=== PATIENT | female | born 1960 | race Caucasian/White ===

== ENCOUNTER → 2017-09-28 | Outpatient (CLI) | payer OTHER ==
--- NOTE | 2017-09-28 13:05 | MG ---
HISTORY: SCREENING Comparison: Previous mammograms dated 06/20/2013 and 07/14/2010 FINDINGS: Bilateral CC and MLO projections of the right and left breast were obtained. Scattered fibroglandula r tissue is seen to be present. No significant architectural distortion, mass or clustered microcalc ifications can be observed to suggest malignancy. No skin thickening or nipple retraction is appreci ated. No pathological lymphadenopathy can be identified. Benign-appearing calcifications scattered throughout the right and left breasts are observed. IMPRESSION: NO RADIOGRAPHIC EVIDENCE OF MALIGNANCY. ACR CATEGORY: 2 - benign findings. FOLLOW-UP EXAM 1 YEAR. Diagnostic CAD was utilized and reviewed. * 0 (ZERO) - ASSESSMENT INCOMPLETE; ADDITIONAL IMAGING IS NEEDED. * 1/1 (ONE) - NEGATIVE. * 2/II (TWO) - BENIGN FINDINGS. * 3/III (THREE) - PROBABLY BENIGN FINDING; SHORT INTERVAL FOLLOW-UP SUGGESTED. * 4/IV (FOUR) - SUSPICIOUS ABNORMALITY; BIOPSY SHOULD BE CONSIDERED. * 5/V - HIGHLY SUSPICIOUS OF MALIGNANCY; BIOPSY SHOULD BE PERFORMED. A NEGATIVE X-RAY REPORT SHOULD NOT DELAY BIOPSY IF A DOMINANT OR CLINICALLY SUSPICIOUS MASS IS PRESENT; 4 TO 8 PERCENT OF CANCERS ARE NOT IDENTIFIED BY X-RAY. A NEGA TIVE REPORT MAY REINFORCE THE CLINICAL IMPRESSION. ADENOSIS AND DENSE BREASTS MAY OBSCURE AN UNDERLY ING NEOPLASM. Reported By:
== END ==
LOC: RAD 10:50
PROVIDERS: ATTEND Specialist
DX: Z12.31 Encounter for screening mammogram for malignant neoplasm of breast (principal)
CPT/HCPCS: 77067

== ENCOUNTER → 2017-10-05 | Outpatient (CLI) | payer OTHER, MEDICAID ==
--- NOTE | 2017-10-05 11:35 | CT ---
HISTORY: Abdominal pain. Study: CT abdomen and pelvis with contrast Comparison: None. Technique: Multiple axial images of the abdomen and pelvis were obtained from the lung bases to the pubic symphy sis after the administration of IV contrast. Dose reduction techniques including Automated Exposure Control (AEC) and adjustment of mA and kV were utilized. Findings: The visualized portions of the lung bases are unremarkable. The liver, spleen, pancreas, kidneys, an d adrenal glands are unremarkable in their CT appearance. The gallbladder is unremarkable in its CT a ppearance. There is thickening of the appendix to 15 mm with periappendiceal stranding. An appendico lith is within appendix. No free air to suggest perforation or focal fluid collection to suggest absc ess formation. No pathologic lymphadenopathy. Remaining large and small bowel appears normal. The ut erus and ovaries appear surgically absent. The urinary bladder is grossly unremarkable. The bony str uctures are grossly intact. IMPRESSION: Constellation of findings likely representing acute appendicitis without free air to sug gest perforation or focal fluid collection to suggest abscess formation. Reported By:
== END ==
LOC: RAD 10:22
PROVIDERS: ATTEND Internal Medicine
DX: R10.32 Left lower quadrant pain (principal); R10.12 Left upper quadrant pain; Z80.0 Family history of malignant neoplasm of digestive organs
CPT/HCPCS: 74177; A4222

== ENCOUNTER 2017-10-06 10:35 | Observation (INO) | payer OTHER, MEDICAID ==
[2017-10-06] MEDS ORDERED: NS 1000 ML 1,000 ML IV SCH (11:29)
[2017-10-06] MEDS ORDERED: DEMEROL INJ IVP PRN (11:37)
--- NOTE | 2017-10-06 11:37 | DR.H&P ---
H&P - History & Physical for Day of: H&P Date: 10/06/17 - Chief Complaint Chief Complaint: LLQ PAIN, ACUTE APPENDICITIS - History of Present Illness History of Present Illness: IS A 57 YEAR OLD PATIENT OF OURS WHO PRESENTED TO THE OFFICE WITH COMPLAINTS OF LEFT LOWER QUADRANT ABDOMINAL PAIN THAT STARTED YESTERDAY. SHE ALSO REPORTS FEVER AND NAUSEA, BUT DENIES VOMITING OR DIARRHEA. ON EXAMINATION, SHE WAS FOUND TO HAVE REBOUND TENDERNESS TO THE LEFT LOWER QUADRANT ON EXAMINATION. PATIENT WAS SENT TO THE HOSPITAL FOR A CT OF THE ABDOMEN AND PELVIS WITH CONTRAST. CT REVEALED CONSTELLATION OF FINDINGS LIKELY REPRESENTING ACUTE APPENDICITIS WITHOUT FREE AIR TO SUGGEST PERFORATION OR FOCAL FLUID COLLECTION TO SUGGEST ABSCESS FORMATION. WE PLAN TO ADMIT PATIENT TO THE HOSPITAL FOR FURTHER EVALUATION AND TREATMENT. ON ADMISSION, WE PLAN TO OBTAIN CBC, CMP, URINALYSIS, CHEST XRAY, AND EKG. WE WILL CONSULT , GENERAL SURGERY FOR APPENDECTOMY. - Review of Systems Constitutional: Fever Eyes: No Symptoms Reported. denies: See HPI, Pain, Vision Change, Conjunctivae Inflammation, Eyelid Inflammation, Redness, Other ENT: No Symptoms Reported. denies: See HPI, Ear Pain, Ear Discharge, Nose Pain , Nose Discharge, Nose Congestion, Mouth Pain, Mouth Swelling, Throat Pain, Throat Swelling, Other Respiratory: No Symptoms Reported. denies: See HPI, Cough, Dry, Shortness of Breath, Hemoptysis, SOB with Excertion, Pleuritic Pain, Sputum, Wheezing, Other Cardiovascular: No Symptoms Reported. denies: Chest Pain, See HPI, Palpitations , Orthopnea, Paroxysmal Noc. Dyspnea, Edema, Light Headedness, Other Gastrointestinal: Nausea, Abdominal Pain. denies: Vomiting, Diarrhea, Constipation, Melena, Hematochezia Genitourinary: No Symptoms Reported. denies: See HPI, Dysuria, Frequency, Incontinence, Hematuria, Retention, Other Musculoskeletal: No Symptoms Reported. denies: See HPI, Shoulder Pain, Arm Pain , Back Pain, Hand Pain, Leg Pain, Foot Pain, Neck Pain, Other Skin: No Symptoms Reported. denies: See HPI, Rash, Lesions, Jaundice, Bruising , Wound, Ecchymosis, Other Neurological: No Symptoms Reported. denies: See HPI, Weakness, Numbness, Incoordination, Change in Speech, Confusion, Seizures, Other Oriented: Normal Eyes: Normal. negative: Blurred Vision, Diplopia, Discharge, Pain, Redness, Photophobia, Other Ear: Normal. negative: Right, Left, Swelling, Ecchymosis, Hemotypanum, Abrasion , Laceration Nose: Normal. negative: Injected, Discharge, Blood, Other Throat: Normal Respiratory: Clear Throughout Cardiovascular: Normal : Normal Auscultation: Bowel Sounds: Normal Palpation: Normal Tenderness: LLQ, Moderate, Rebound, Guarding, Rigidity Skin: Normal Musculoskeletal: Normal Psychiatric: Normal Mood Description: Calm Affect: Normal Speech Pattern: Clear - Assessment/Plan (1) Acute appendicitis Qualifiers: Acute appendicitis type: unspecified acute appendicitis type Qualified Code (s): K35.80 - Unspecified acute appendicitis Status: Acute Plan: ADMIT, CONSULT GENERAL SURGERY FOR APPENDECTOMY, NORMAL SALINE @ 80ML/HR, DEMEROL 25MG IV Q4H PRN PAIN, PHENERGAN 12.5MG IV Q4H PRN PAIN, CONTINUE TO MONITOR
[2017-10-06] MEDS ORDERED: PHENERGAN INJ 25 MG IV PRN (11:38)
--- NOTE | 2017-10-06 12:02 | RAD ---
HISTORY: Preoperative exam for acute appendicitis Study: Single-view of chest Comparison: February 15, 2011 Findings: The trachea is midline. The cardiac silhouette is at the upper limits of normal. The lung apices ar e not entirely included. Otherwise the visualized lungs are clear without focal infiltrate or effusio n. Partially visualized postoperative changes of bilateral shoulder arthroplasty are noted. IMPRESSION: 1. No acute cardiopulmonary disease as noted above. Reported By:
[2017-10-06 12:05] LABS: BASOPHILS # (AUTO) 0.1 X10^3/uL (0.0-0.1); BASOPHILS % (AUTO) 0.8 % (0.2-1.0); EOSINOPHILS # (AUTO) 0.1 x10^3/uL (0.0-0.2); EOSINOPHILS % (AUTO) 1.7 % (0.9-2.9); HEMATOCRIT 43.9 % (36.0-47.0); LYMPHOCYTES # (AUTO) 2.2 X10^3/uL (1.3-2.9); LYMPHOCYTES % (AUTO) 32.5 % (21.0-51.0); MEAN CORPUSCULAR HEMOGLOBIN 33.1 pg (27.0-34.0); MEAN CORPUSCULAR HGB CONC 34.1 g/dL (33.0-35.0); MEAN CORPUSCULAR VOLUME 97.1 fL (80.0-100.0); MEAN PLATELET VOLUME 9.4 fL (7.4-11.0); MONOCYTES # (AUTO) 0.4 x10^3/uL (0.3-0.8); MONOCYTES % (AUTO) 5.3 % (0.0-13.0); NEUTROPHILS % (AUTO) 59.7 % (42.0-75.0); PLATELET COUNT 245 X10^3/uL (150.0-450.0); RED BLOOD COUNT 4.52 X10^6/uL (3.5-5.4); RED CELL DISTRIBUTION WIDTH 12.8 % (11.6-16.5); WHITE BLOOD COUNT 6.7 X10^3/uL (3.6-10.0)
[2017-10-06 12:16] LABS: ALANINE AMINOTRANSFERASE 31 Units/L (12-78); ALKALINE PHOSPHATASE 98 Units/L (46-116); ASPARTATE AMINO TRANSFERASE 22 Units/L (15-37); BLOOD UREA NITROGEN 14 mg/dL (7-18); CALCIUM 8.7 mg/dL (8.5-10.1); CARBON DIOXIDE 31.3 mmol/L (21-32); CHLORIDE 102 mmol/L (98-107); COR NA(FOR HYPERGLY) 143 mmol/L (136-145); CREATININE 0.82 mg/dL (0.55-1.02); SODIUM 142 mmol/L (136-145); TOTAL PROTEIN 7.7 g/dL (6.4-8.2); eGFR BLACK RACES > 60 (>60); eGFR NON BLACK RACES > 60 (>60)
[2017-10-06] MEDS ORDERED: KLONOPIN TAB 1 MG PO ONE (12:55)
[2017-10-06] MEDS ORDERED: ZOSYN VIAL 3.375 GM IV SCH (13:00)
[2017-10-06] MEDS ORDERED: NS 100 ML IV + SPIKE MINIBAG* 100 ML IV ONE (13:01)
[2017-10-06] MEDS ORDERED: VERSED ONE (13:16)
[2017-10-06] MEDS ORDERED: QUELICIN (OR ANECTINE) ONE (13:16)
[2017-10-06] MEDS ORDERED: NORCURON INJ 10 MG VIAL ONE (13:16)
[2017-10-06] MEDS ORDERED: NEOSTIGMINE INJ ONE (13:16)
[2017-10-06] MEDS ORDERED: ROBINUL ONE (13:16)
[2017-10-06] MEDS ORDERED: LTA KIT LIDOCAINE 4% ONE (13:16)
[2017-10-06] MEDS ORDERED: ZOFRAN INJ 4 MG VIAL ONE (13:16)
[2017-10-06] MEDS ORDERED: XYLOCAINE 2 % (PLAIN) ONE (13:16)
[2017-10-06] MEDS ORDERED: SUPRANE IN ONE (13:16)
[2017-10-06] MEDS ORDERED: LR 1000 ML IV 1,000 ML IV ONE (13:25)
[2017-10-06 14:19] VITALS: BMI 24.3
[2017-10-06 14:23] LABS: BILIRUBIN,URINE NEGATIVE (NEGATIVE); BLOOD/HEMOGLOBIN,URINE NEGATIVE (NEGATIVE); GLUCOSE, URINE NEGATIVE (NEGATIVE); KETONES,URINE NEGATIVE (NEGATIVE); LEUKOCYTE ESTERASE ,URINE NEGATIVE (NEGATIVE); NITRITES,URINE NEGATIVE (NEGATIVE); PROTEIN,URINE NEGATIVE (NEGATIVE); UROBILINOGEN,URINE NORMAL (NORMAL)
[2017-10-06] MEDS ORDERED: FENTANYL INJ 250 mcg ONE (14:41)
[2017-10-06 14:58] LABS: APPEARANCE,URINE CLEAR (CLEAR); COLOR,URINE YELLOW (YELLOW)
[2017-10-06] MEDS ORDERED: FENTANYL INJ 100 mcg ONE (15:10)
[2017-10-06] MEDS ORDERED: NS IRRIGATION 1000 ML 1,000 ML IR ONE (15:20)
[2017-10-06] MEDS ORDERED: DILAUDID INJ ONE ×2 (16:25→16:44)
[2017-10-06] MEDS ORDERED: PHENERGAN INJ 25 MG IVP PRN (16:26)
[2017-10-06] MEDS ORDERED: ZOFRAN INJ 4 MG VIAL IVP PRN (16:26)
[2017-10-06] MEDS ORDERED: BENADRYL INJ 50 MG VIAL IVP PRN (16:26)
[2017-10-06] MEDS ORDERED: REGLAN INJ 10 MG VIAL IVP PRN (16:26)
[2017-10-06] MEDS: DILAUDID INJ IVP PRN ×5 (16:26→16:51)
[2017-10-06] MEDS ORDERED: ZOFRAN INJ 4 MG VIAL IV PRN (16:39)
--- NOTE | 2017-10-06 16:54 | OR.GENERIC ---
Post-Op Note Generic - Post-Op Note Operative Report: diagnostic laparoscopy revealed sub acute and chronic inflamation involving the RLQ with dense scaring involving the appendix .. no CROHN'S DISEASE OR OTHER IBD. normal ovaties and sigmoid EBL 20 to 30 cc will keep on IV ATB , IVF release of the adhesions in the RLQ some of the necrotic and scarred appediceal tissue was excised
[2017-10-06] MEDS ORDERED: DILAUDID INJ IVP PRN (16:57)
[2017-10-06] MEDS: ZOSYN VIAL 3.375 GM 3.375 GM in NS 100 ML IV + SPIKE MINIBAG* 100 ML IV SCH ×2 (17:06→22:00)
[2017-10-06] MEDS: NS 1/2 1000 ML IV 1,000 ML IV SCH (17:07)
[2017-10-06 17:32] LABS: AMYLASE 31 Units/L (25-115)
[2017-10-06 17:47] LABS: LIPASE 102 Units/L (73-393)
[2017-10-06] MEDS ORDERED: NS 1/2 1000 ML IV 1,000 ML IV ONE (17:58)
[2017-10-06] MEDS ORDERED: PROVENTIL NEB TX 0.083% 2.5MG/ 3ML NEB PRN (18:02)
[2017-10-06] MEDS ORDERED: ULTRAM PO PRN (18:35)
[2017-10-06] MEDS ORDERED: AMBIEN PO PRN (18:35)
[2017-10-06] MEDS ORDERED: ELAVIL PO SCH (19:00)
[2017-10-06] MEDS ORDERED: KLONOPIN TAB 1 MG PO PRN (19:00)
[2017-10-06] MEDS ORDERED: LIPITOR TAB 40 MG PO SCH (21:00)
[2017-10-06] MEDS ORDERED: ZOSYN VIAL 3.375 GM 3.375 GM in NS 100 ML IV + SPIKE MINIBAG* 100 ML IV SCH (22:00)
[2017-10-06] MEDS: EFFEXOR TAB 75 MG (BID DOSING) PO SCH (22:00)
[2017-10-07] MEDS: DILAUDID INJ IVP PRN ×3 (00:05→09:54)
[2017-10-07] MEDS: EFFEXOR TAB 75 MG (BID DOSING) PO SCH ×2 (03:34→09:47)
[2017-10-07] MEDS: ZOSYN VIAL 3.375 GM 3.375 GM in NS 100 ML IV + SPIKE MINIBAG* 100 ML IV SCH (05:41)
[2017-10-07 05:48] LABS: BASOPHILS % (AUTO) 0.6 % (0.2-1.0); EOSINOPHILS # (AUTO) 0.1 x10^3/uL (0.0-0.2); EOSINOPHILS % (AUTO) 2.1 % (0.9-2.9); HEMATOCRIT 36.8 % (36.0-47.0); HEMOGLOBIN 12.7 g/dL (12.0-16.0); LYMPHOCYTES % (AUTO) 29.3 % (21.0-51.0); MEAN CORPUSCULAR HEMOGLOBIN 33.4 pg (27.0-34.0); MEAN CORPUSCULAR HGB CONC 34.6 g/dL (33.0-35.0); MEAN CORPUSCULAR VOLUME 96.6 fL (80.0-100.0); MEAN PLATELET VOLUME 9.9 fL (7.4-11.0); MONOCYTES # (AUTO) 0.4 x10^3/uL (0.3-0.8); MONOCYTES % (AUTO) 6.6 % (0.0-13.0); NEUTROPHILS # (AUTO) 4.1 x10^3/uL (2.2-4.8); NEUTROPHILS % (AUTO) 61.4 % (42.0-75.0); PLATELET COUNT 199 X10^3/uL (150.0-450.0); RED BLOOD COUNT 3.81 X10^6/uL (3.5-5.4); RED CELL DISTRIBUTION WIDTH 12.6 % (11.6-16.5); WHITE BLOOD COUNT 6.7 X10^3/uL (3.6-10.0)
[2017-10-07] MEDS ORDERED: NS 1/2 1000 ML IV 1,000 ML IV ONE (05:48)
[2017-10-07] MEDS: NS 1/2 1000 ML IV 1,000 ML IV SCH (05:52)
[2017-10-07 06:05] LABS: ALANINE AMINOTRANSFERASE 28 Units/L (12-78); ALBUMIN 3.1 g/dL (3.4-5.0); ALKALINE PHOSPHATASE 67 Units/L (46-116); ASPARTATE AMINO TRANSFERASE 27 Units/L (15-37); BLOOD UREA NITROGEN 8 mg/dL (7-18); CALCIUM 7.6 mg/dL (8.5-10.1); CARBON DIOXIDE 31.6 mmol/L (21-32); CHLORIDE 105 mmol/L (98-107); COR CA(FOR HYPOALB) 8.3 mg/dL (8.5-10.1); SODIUM 143 mmol/L (136-145); eGFR BLACK RACES > 60 (>60); eGFR NON BLACK RACES > 60 (>60)
[2017-10-07] MEDS ORDERED: HYDROCHLOROTHIAZIDE 12.5 MG CAP PO SCH (09:00)
[2017-10-07] MEDS ORDERED: NORVASC TAB 10 MG PO SCH (09:00)
[2017-10-07] MEDS ORDERED: COZAAR PO SCH (09:00)
[2017-10-07] MEDS ORDERED: ZOLOFT PO SCH (09:00)
[2017-10-07 12:46] VITALS: BP 118/66
== END 2017-10-07 12:51 | disposition home or self-care (01) ==
LOC: MED/SURG 10:35
PROVIDERS: ADMIT Internal Medicine; ATTEND Internal Medicine
PROC: 0DTJ4ZZ Resection of Appendix, Percutaneous Endoscopic Approach (ICD-10-PCS; principal; 2017-10-06 14:00)
PROC: 0DNW4ZZ Release Peritoneum, Percutaneous Endoscopic Approach (ICD-10-PCS; principal; 2017-10-06 14:00)
DX: K35.80 Unspecified acute appendicitis (principal); R10.31 Right lower quadrant pain
CPT/HCPCS: 36415; 71045; 80053; 81003; 82150; 83690; 85025; 86850; 86900; 86901; 93005; 94760; A4216; A4222; G0378; J0330; J1170; J2001; J2250; J2405; J2543; J2710; J3010; J3490; J7120; J7613

== ENCOUNTER 2017-12-29 08:28 | Inpatient (IN) ==
--- NOTE | 2017-12-29 09:22 | RAD ---
Three views of the left wrist Indication: Left wrist pain after fall. Findings: There is a transverse oriented extra-articular fracture of the distal radial metaphysis wit h dorsal displacement and mild angulation the distal fracture fragment. Additionally there is a minim ally displaced fracture of the ulnar styloid process. No fracture identified within the carpus. Moder ate soft tissue swelling within the left wrist. Impression: 1.Transversely oriented fracture of the distal radial metaphysis with mild dorsal angulation and disp lacement of distal fracture fragment. 2. Minimally displaced ulnar styloid process fracture. Reported By:
[2017-12-29] MEDS ORDERED: DILAUDID INJ ONE ×2 (09:37→10:53)
[2017-12-29] MEDS ORDERED: DILAUDID INJ IVP ONE ×2 (09:37→10:53)
--- NOTE | 2017-12-29 09:40 | DR.GENAD ---
HPI - PCP Primary Care Physician: GINO - Complaint/Symptoms Chief Complaint Doctors Comments: Patient admits to falling at home on last night at 2300 hours and injured her left wrist. This am the wrist is swollen and hurts. The pain is 10/10, worse with movement, sharp. Chief Complaint:: PT C/O BROKEN LT HAND. PT STATES SHE TRIPPED OVER THE RUG LAST NIGHT AND CAUGHT HERSELF WITH HER HAND. NOTED OBVIOUSL DEFORMITY TO LT WRIST. Self Treatment fo Chief Complaint: PT HAS TAKEN X2 PERCOCET 10/325MG AROUND 0600 - Source History Provided: Patient - Mode of Arrival Mode of Arrival: Ambulatory - Timing Onset of Chief Complaint: 12/28/17 PMH - PMH Past Medical History: Yes Past Medical History: Anxiety, Depression, Hypertension Past Medical History Comment: BIPOLAR Past Surgical History: Yes Surgical History: Hysterectomy, Ortho Surgery, Other - Family History History of Family Medical Conditions: Yes Family Medical History: Diabetes Mellitus, Cancer, [place], Coronary Artery Disease, Heart Failure, Hypertension - Social History Does patient currently use any type of tobacco product: Yes Have you used tobacco products in the last 12 months: Yes Type of Tobacco Use: Cigarettes Does any household member use tobacco: Yes Alcohol Use: Occasionally Do you use any recreational Drugs:: Yes (THC) Lives With: Spouse Lives Where: Home - infectious screening In the last 2 months have you had wt loss of >10#?: NO Have you had fever, night sweats or hemotysis?: No Have you traveled outside the country in the last 6 months?: No Isolation: Standard ROS - Review of Systems Eyes: No Symptoms Reported ENTM: No Symptoms Reported Respiratoy: No Symptoms Reported Cardiovascular: No Symptoms Reported Gastrointestinal/Abdominal: No Symptoms Reported Genitourinary: No Symptoms Reported Neurological: No Symptoms Reported Musculoskeletal: Wrist (left wrist pain) Integumentary: No Symptoms Reported Hematologic/Lymphatic: No Symptoms Reported Endocrine: No Symptoms Reported Psychiatric: No Symptoms Reported All Other Systems: Reviewed and Negative PE - General Limitations: negative: No Limitations, Language Barrier, Altered Mental Status, Physical Limitation, Other General Appearance: Alert, In Distress - Head Head Exam: Normal Inspection, Atraumatic - Eyes Eye exam: Normal Appearance, PERRL, EOMI - ENT ENT Exam: Normal Exam External Ear Exam: Normal External Inspection TM/Canal Exam: Bilateral Normal Nose Exam: Normal Nose Exam Mouth Exam: Normal Inspection Throat Exam: Normal Inspection - Neck Neck Exam: Normal Inspection, Full ROM - Chest Chest Inspection: Normal Inspection - Respiratory Respiratory Exam: Normal Lung Sounds Bilat Respiratory Exam: Bilateral Clear to Auscultation - Cardiovascular Cardiovascular Exam: Regular Rate, Normal Rhythm - Abdominal Exam Abdominal Exam: Normal Inspection, Normal Bowel Sounds Abdominal Tenderness: negative: RUQ, RLQ, LUQ, LLQ, Epigastrium, Suprapubic, Diffuse, Mild, Moderate, Severe, Other - Extremities Extremities Exam: Tenderness (left wrist swollen and tender ), Edema, Joint Swelling - Back Back Exam: Normal Inspection - Neurologic Neurological Exam: Alert, Oriented X3, CN II-XII Intact - Psychiatric Psychiatric Exam: Normal Affect, Normal Mood - Skin Skin Exam: Warm, Dry - Vital Signs Vitals: Temperature 98.3 F Pulse Rate 76 Respiratory Rate 18 Blood Pressure [Right Arm] 118/66 Blood Pressure 135/66 O2 Sat by Pulse Oximetry 95 Course - Treatment Treatment: Contacted Dr Vilma todd for evaluation - Reevaluation 1st: Improved - Consultation Called: 15:00 (Dr Francisco agreed to admit for pain control) ROR - XRAY XRAY Interpreted by: Radiologist (Wrist: There is a transverse oriented extra- articular fracture of the distal radial metaphysis with dorsal displacement and mild angulation the distal fracture fragment. Additionally there is a minimally displaced fracture of the ulnar styloid process. No fracture identified within tjhe carpus. Moderate soft tissue swelling within the left wrist. ) - Diagnosis Discharge Problem: Traumatic closed torus fracture of metaphysis of left distal radius with minimal displacement with delayed healing Wrist fracture, left Qualifiers: Encounter type: initial encounter Fracture type: closed Qualified Code(s): S62.102A - Fracture of unspecified carpal bone, left wrist, initial encounter for closed fracture Fracture of styloid process of left radius Qualifiers: Encounter type: initial encounter Fracture type: closed Fracture alignment: displaced Qualified Code(s): S52.512A - Displaced fracture of left radial styloid process, initial encounter for closed fracture - Discharge Plan Condition: Stable - Follow ups/Referrals Follow ups/Referrals: Randall Francisco [Primary Care Provider] - 3 days - Instructions
[2017-12-29] MEDS ORDERED: DILAUDID PCA 60 MG IVP PRN (11:06)
[2017-12-29] MEDS ORDERED: NS 500 ML IV 500 ML IV ONE ×2 (12:02→22:52)
[2017-12-29] MEDS: MORPHINE SULFATE PCA 30 MG IVP PRN ×3 (12:18→22:00)
[2017-12-29 14:00] VITALS: BMI 26.2
[2017-12-29] MEDS: PERCOCET TAB 5/325 MG PO PRN ×2 (17:21→23:40)
--- NOTE | 2017-12-29 20:59 | DR.H&P ---
H&P - History & Physical for Day of: H&P Date: 12/29/17 - Chief Complaint Chief Complaint: left hand/wrist pain - History of Present Illness History of Present Illness: is a 57 year old patient of ours who presented to the emergency room with reports of a fall at home last night. Patient reports severe left hand/wrist pain and swelling. Patient noted with an obvious deformity to left wrist. Patient states she took two Percocet at home without relief in pain. On arrival, vitals were 98.3, 76, 18, 95% RA, 135/66. X- ray obtained on admission revealed transversely oriented fracture of the distal radial metaphysis with mild dorsal angulation and displacement of distal fracture fragment and minimally displaced ulnar styloid process fracture. Patient given two doses of Dilaudid in the emergency room with continued reports of pain. , ER physician consulted with , orthopedics. recommends admission for pain control and surgical clearance and plan for surgery on Monday. 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 - Past Medical History Past Medical History: Anxiety, Depression, Hypertension Additional Medical History: bipolar - Past Surgical History Surgical History: Appendectomy, Hysterectomy, Ortho Surgery, Other - Family History Family Medical History: Diabetes Mellitus, Cancer, [place], Coronary Artery Disease, Heart Failure, Hypertension - Social History Does patient currently use any type of tobacco product: Yes Have you used tobacco products in the last 12 months: Yes Type of Tobacco Use: Cigarettes Does any household member use tobacco: Yes Alcohol Use: Occasionally Drug Use: Marijuana - Medications Home Medications: No Known Drug Allergies Allergy (Verified 10/06/17 11:35) CONTINUE taking the following medications oxycodone-acetaminophen 1 tab PO Q6H PRN 12/29/17 [History] tramadol 1 - 2 tab PO Q4-6H PRN 12/29/17 [History] - Review of Systems Constitutional: No Symptoms Reported Eyes: No Symptoms Reported ENT: No Symptoms Reported Respiratory: No Symptoms Reported Cardiovascular: No Symptoms Reported Gastrointestinal: No Symptoms Reported Genitourinary: No Symptoms Reported Musculoskeletal: See HPI, Hand Pain (left hand/wrist pain ) Skin: No Symptoms Reported Neurological: No Symptoms Reported - Physical Exam Vital Signs: Temperature 98.5 F Pulse Rate [Right Brachial] 66 Pulse Rate 76 Respiratory Rate 18 Blood Pressure [Right Arm] 122/59 Blood Pressure 135/66 O2 Sat by Pulse Oximetry 94 Oriented: Normal Eyes: Normal Ear: Normal Nose: Normal Throat: Normal Respiratory: Clear Throughout Cardiovascular: Normal : Normal Auscultation: Bowel Sounds: Normal Palpation: Normal Tenderness: Normal Skin: Normal Musculoskeletal: Left, Wrist, Swelling, Tender Psychiatric: Normal Mood Description: Calm Affect: Normal Speech Pattern: Clear - Assessment/Plan (1) Fracture of styloid process of left radius Qualifiers: Encounter type: initial encounter Fracture type: closed Fracture alignment: displaced Qualified Code(s): S52.512A - Displaced fracture of left radial styloid process, initial encounter for closed fracture Status: Acute Plan: 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
[2017-12-29 21:27] LABS: BASOPHILS % (AUTO) 0.6 % (0.2-1.0); EOSINOPHILS # (AUTO) 0.2 x10^3/uL (0.0-0.2); EOSINOPHILS % (AUTO) 2.1 % (0.9-2.9); HEMATOCRIT 39.1 % (36.0-47.0); HEMOGLOBIN 13.6 g/dL (12.0-16.0); LYMPHOCYTES % (AUTO) 27.1 % (21.0-51.0); MEAN CORPUSCULAR HEMOGLOBIN 33.6 pg (27.0-34.0); MEAN CORPUSCULAR HGB CONC 34.7 g/dL (33.0-35.0); MEAN CORPUSCULAR VOLUME 96.8 fL (80.0-100.0); MEAN PLATELET VOLUME 9.3 fL (7.4-11.0); MONOCYTES # (AUTO) 0.7 x10^3/uL (0.3-0.8); MONOCYTES % (AUTO) 8.9 % (0.0-13.0); NEUTROPHILS # (AUTO) 4.6 x10^3/uL (2.2-4.8); NEUTROPHILS % (AUTO) 61.3 % (42.0-75.0); PLATELET COUNT 214 X10^3/uL (150.0-450.0); RED BLOOD COUNT 4.04 X10^6/uL (3.5-5.4); RED CELL DISTRIBUTION WIDTH 12.4 % (11.6-16.5); WHITE BLOOD COUNT 7.5 X10^3/uL (3.6-10.0)
[2017-12-29 21:44] LABS: ALANINE AMINOTRANSFERASE 22 Units/L (12-78); ALBUMIN 3.4 g/dL (3.4-5.0); ALKALINE PHOSPHATASE 93 Units/L (46-116); ASPARTATE AMINO TRANSFERASE 32 Units/L (15-37); BLOOD UREA NITROGEN 9 mg/dL (7-18); CALCIUM 8.2 mg/dL (8.5-10.1); CARBON DIOXIDE 33.3 mmol/L (21-32); CREATININE 0.77 mg/dL (0.55-1.02); TOTAL PROTEIN 6.5 g/dL (6.4-8.2); eGFR NON BLACK RACES > 60 (>60)
[2017-12-29 21:57] LABS: COR NA(FOR HYPERGLY) 143 mmol/L (136-145); SODIUM 143 mmol/L (136-145)
[2017-12-29 21:58] LABS: CHLORIDE 104 mmol/L (98-107)
[2017-12-29] MEDS ORDERED: POTASSIUM CHL 40 MEQ/NS 0.45% 500 ML IV PRN (22:11)
[2017-12-29] MEDS ORDERED: POTASSIUM CHLORIDE LIQ 20 MEQ UDC PO PRN (22:11)
[2017-12-29] MEDS ORDERED: MAGNESIUM SULFATE 1 GRAM/100 mL PREMIX 1 GM/100 ML BAG IV PRN (22:11)
[2017-12-29] MEDS ORDERED: K-RIDER 10 MEQ/NS 100 ML 10 MEQ/100 ML BAG IV PRN (22:11)
[2017-12-29] MEDS: AMBIEN PO SCH (22:17)
[2017-12-29] MEDS: LIPITOR TAB 40 MG PO SCH (22:18)
[2017-12-29] MEDS: ELAVIL PO SCH (22:18)
[2017-12-29] MEDS: EFFEXOR TAB 75 MG (BID DOSING) PO SCH (22:18)
[2017-12-29] MEDS: POTASSIUM CHL 60 MEQ/NS 0.45% 500 ML IV PRN (23:00)
[2017-12-30] MEDS: MORPHINE SULFATE PCA 30 MG IVP PRN ×4 (00:01→19:33)
[2017-12-30] MEDS: POTASSIUM CHL 60 MEQ/NS 0.45% 500 ML IV PRN (00:05)
[2017-12-30] MEDS: PERCOCET TAB 5/325 MG PO PRN ×3 (05:40→19:34)
[2017-12-30 06:16] LABS: BASOPHILS % (AUTO) 0.6 % (0.2-1.0); EOSINOPHILS # (AUTO) 0.2 x10^3/uL (0.0-0.2); EOSINOPHILS % (AUTO) 2.3 % (0.9-2.9); HEMATOCRIT 37.1 % (36.0-47.0); HEMOGLOBIN 12.7 g/dL (12.0-16.0); LYMPHOCYTES # (AUTO) 2.1 X10^3/uL (1.3-2.9); MEAN CORPUSCULAR HEMOGLOBIN 33.8 pg (27.0-34.0); MEAN CORPUSCULAR HGB CONC 34.3 g/dL (33.0-35.0); MEAN CORPUSCULAR VOLUME 98.4 fL (80.0-100.0); MEAN PLATELET VOLUME 10.2 fL (7.4-11.0); MONOCYTES # (AUTO) 0.5 x10^3/uL (0.3-0.8); MONOCYTES % (AUTO) 8.2 % (0.0-13.0); NEUTROPHILS # (AUTO) 3.8 x10^3/uL (2.2-4.8); NEUTROPHILS % (AUTO) 56.9 % (42.0-75.0); PLATELET COUNT 192 X10^3/uL (150.0-450.0); RED BLOOD COUNT 3.77 X10^6/uL (3.5-5.4); RED CELL DISTRIBUTION WIDTH 12.6 % (11.6-16.5); WHITE BLOOD COUNT 6.7 X10^3/uL (3.6-10.0)
[2017-12-30 06:44] LABS: ALANINE AMINOTRANSFERASE 34 Units/L (12-78); ALBUMIN 3.1 g/dL (3.4-5.0); ALKALINE PHOSPHATASE 96 Units/L (46-116); ASPARTATE AMINO TRANSFERASE 57 Units/L (15-37); BLOOD UREA NITROGEN 6 mg/dL (7-18); CALCIUM 8.2 mg/dL (8.5-10.1); CARBON DIOXIDE 27.6 mmol/L (21-32); CHLORIDE 107 mmol/L (98-107); COR CA(FOR HYPOALB) 8.9 mg/dL (8.5-10.1); CREATININE 0.57 mg/dL (0.55-1.02); SODIUM 141 mmol/L (136-145); TOTAL PROTEIN 6.1 g/dL (6.4-8.2); eGFR NON BLACK RACES > 60 (>60)
[2017-12-30] MEDS: COZAAR PO SCH (09:12)
[2017-12-30] MEDS: KLONOPIN TAB 1 MG PO PRN ×2 (09:12→21:14)
[2017-12-30] MEDS: NORVASC TAB 10 MG PO SCH (09:12)
[2017-12-30] MEDS: ZOLOFT PO SCH (09:12)
[2017-12-30] MEDS: HYDROCHLOROTHIAZIDE 12.5 MG CAP PO SCH (09:12)
[2017-12-30] MEDS: EFFEXOR TAB 75 MG (BID DOSING) PO SCH ×2 (09:12→21:14)
[2017-12-30] MEDS: NICOTINE PATCH TD SCH (15:25)
[2017-12-30] MEDS: AMBIEN PO SCH (21:14)
[2017-12-30] MEDS: LIPITOR TAB 40 MG PO SCH (21:14)
[2017-12-30] MEDS: ELAVIL PO SCH (21:14)
[2017-12-30] MEDS: COLACE CAP 100 MG PO SCH ×2 (21:35→23:38)
[2017-12-30] MEDS: MILK OF MAGNESIA PO SCH ×2 (21:35→23:37)
[2017-12-30] MEDS ORDERED: MILK OF MAGNESIA ONE (23:32)
[2017-12-30] MEDS ORDERED: COLACE CAP 100 MG PO ONE (23:33)
[2017-12-31] MEDS: MORPHINE SULFATE PCA 30 MG IVP PRN ×4 (02:03→21:07)
[2017-12-31] MEDS: PERCOCET TAB 5/325 MG PO PRN ×2 (02:59→19:12)
[2017-12-31] MEDS ORDERED: NS 500 ML IV 500 ML IV ONE (05:35)
[2017-12-31 06:08] LABS: BASOPHILS % (AUTO) 0.7 % (0.2-1.0); EOSINOPHILS # (AUTO) 0.2 x10^3/uL (0.0-0.2); EOSINOPHILS % (AUTO) 3.1 % (0.9-2.9); HEMATOCRIT 40.3 % (36.0-47.0); LYMPHOCYTES # (AUTO) 1.8 X10^3/uL (1.3-2.9); LYMPHOCYTES % (AUTO) 27.3 % (21.0-51.0); MEAN CORPUSCULAR HEMOGLOBIN 33.8 pg (27.0-34.0); MEAN CORPUSCULAR HGB CONC 34.7 g/dL (33.0-35.0); MEAN CORPUSCULAR VOLUME 97.4 fL (80.0-100.0); MEAN PLATELET VOLUME 10.2 fL (7.4-11.0); MONOCYTES # (AUTO) 0.4 x10^3/uL (0.3-0.8); MONOCYTES % (AUTO) 5.6 % (0.0-13.0); NEUTROPHILS # (AUTO) 4.1 x10^3/uL (2.2-4.8); NEUTROPHILS % (AUTO) 63.3 % (42.0-75.0); PLATELET COUNT 182 X10^3/uL (150.0-450.0); RED BLOOD COUNT 4.13 X10^6/uL (3.5-5.4); RED CELL DISTRIBUTION WIDTH 12.2 % (11.6-16.5); WHITE BLOOD COUNT 6.5 X10^3/uL (3.6-10.0)
[2017-12-31 06:28] LABS: BLOOD UREA NITROGEN 5 mg/dL (7-18); CALCIUM 9.1 mg/dL (8.5-10.1); CARBON DIOXIDE 30.7 mmol/L (21-32); CHLORIDE 102 mmol/L (98-107); CREATININE 0.56 mg/dL (0.55-1.02); SODIUM 140 mmol/L (136-145); eGFR NON BLACK RACES > 60 (>60)
--- NOTE | 2017-12-31 07:33 | RAD ---
HISTORY: Preoperative evaluation for forearm surgery Study: Single-view chest Comparison: October 06, 2017 Findings: The trachea is midline. The cardiac silhouette is unremarkable. The lungs are clear without focal m ass or consolidation. There is no effusion or pneumothorax. Bilateral shoulder prostheses are noted . IMPRESSION: No acute cardiopulmonary disease. Reported By:
[2017-12-31] MEDS: NORVASC TAB 10 MG PO SCH (08:57)
[2017-12-31] MEDS: EFFEXOR TAB 75 MG (BID DOSING) PO SCH ×2 (08:57→20:50)
[2017-12-31] MEDS: COZAAR PO SCH (08:57)
[2017-12-31] MEDS: ZOLOFT PO SCH (08:58)
[2017-12-31] MEDS: HYDROCHLOROTHIAZIDE 12.5 MG CAP PO SCH (08:58)
[2017-12-31] MEDS: K-LYTE EFFERVESCENT PO PRN (08:58)
[2017-12-31] MEDS: NICOTINE PATCH TD SCH (09:08)
[2017-12-31] MEDS: MILK OF MAGNESIA PO SCH ×3 (11:44→20:51)
[2017-12-31] MEDS: KLONOPIN TAB 1 MG PO SCH ×2 (13:10→21:15)
[2017-12-31] MEDS: ELAVIL PO SCH (20:50)
[2017-12-31] MEDS: COLACE CAP 100 MG PO SCH ×2 (20:50)
[2017-12-31] MEDS: LIPITOR TAB 40 MG PO SCH (20:51)
[2017-12-31] MEDS: AMBIEN PO SCH (23:05)
[2018-01-01] MEDS: KLONOPIN TAB 1 MG PO SCH ×3 (05:13→22:27)
[2018-01-01 05:40] LABS: BLOOD UREA NITROGEN 9 mg/dL (7-18); CALCIUM 8.4 mg/dL (8.5-10.1); CARBON DIOXIDE 33.1 mmol/L (21-32); CHLORIDE 104 mmol/L (98-107); CREATININE 0.55 mg/dL (0.55-1.02); SODIUM 140 mmol/L (136-145); eGFR NON BLACK RACES > 60 (>60)
[2018-01-01 05:46] LABS: BASOPHILS % (AUTO) 0.6 % (0.2-1.0); EOSINOPHILS # (AUTO) 0.2 x10^3/uL (0.0-0.2); EOSINOPHILS % (AUTO) 3.9 % (0.9-2.9); HEMATOCRIT 37.4 % (36.0-47.0); HEMOGLOBIN 12.8 g/dL (12.0-16.0); LYMPHOCYTES # (AUTO) 1.5 X10^3/uL (1.3-2.9); LYMPHOCYTES % (AUTO) 28.7 % (21.0-51.0); MEAN CORPUSCULAR HEMOGLOBIN 33.7 pg (27.0-34.0); MEAN CORPUSCULAR HGB CONC 34.3 g/dL (33.0-35.0); MEAN CORPUSCULAR VOLUME 98.3 fL (80.0-100.0); MEAN PLATELET VOLUME 9.6 fL (7.4-11.0); MONOCYTES # (AUTO) 0.4 x10^3/uL (0.3-0.8); MONOCYTES % (AUTO) 6.9 % (0.0-13.0); NEUTROPHILS # (AUTO) 3.2 x10^3/uL (2.2-4.8); NEUTROPHILS % (AUTO) 59.9 % (42.0-75.0); PLATELET COUNT 189 X10^3/uL (150.0-450.0); RED BLOOD COUNT 3.81 X10^6/uL (3.5-5.4); RED CELL DISTRIBUTION WIDTH 12.2 % (11.6-16.5); WHITE BLOOD COUNT 5.3 X10^3/uL (3.6-10.0)
[2018-01-01] MEDS: MORPHINE SULFATE PCA 30 MG IVP PRN ×3 (06:37→21:36)
[2018-01-01] MEDS: ZOLOFT PO SCH ×2 (08:28→13:33)
[2018-01-01] MEDS: COZAAR PO SCH (08:28)
[2018-01-01] MEDS: EFFEXOR TAB 75 MG (BID DOSING) PO SCH ×3 (08:28→22:27)
[2018-01-01] MEDS: HYDROCHLOROTHIAZIDE 12.5 MG CAP PO SCH (08:28)
[2018-01-01] MEDS: NORVASC TAB 10 MG PO SCH (08:29)
[2018-01-01] MEDS: MILK OF MAGNESIA PO SCH ×5 (08:29→22:31)
[2018-01-01] MEDS: NICOTINE PATCH TD SCH (08:29)
[2018-01-01] MEDS ORDERED: ANCEF 1 GRAM IV PREMIX* 1 G/50 ML BAG IV ONE (08:40)
[2018-01-01] MEDS ORDERED: LR 1000 ML IV 1,000 ML IV ONE (08:40)
[2018-01-01] MEDS ORDERED: MARCAINE 0.25% INJ ONE ×2 (09:13→11:16)
[2018-01-01] MEDS ORDERED: BACTROBAN TOPICAL OINT ONE (09:14)
[2018-01-01] MEDS ORDERED: FENTANYL INJ 250 mcg ONE (09:15)
[2018-01-01] MEDS ORDERED: DILAUDID INJ ONE ×2 (09:15→11:35)
[2018-01-01] MEDS ORDERED: FENTANYL INJ 100 mcg ONE (10:20)
[2018-01-01] MEDS ORDERED: DECADRON INJ ONE (10:20)
[2018-01-01] MEDS ORDERED: HYDROGEN PEROXIDE 3% ONE (11:16)
[2018-01-01] MEDS: DILAUDID INJ IVP PRN ×3 (11:35→11:55)
[2018-01-01] MEDS ORDERED: REGLAN INJ 10 MG VIAL IVP PRN (11:36)
[2018-01-01] MEDS ORDERED: ZOFRAN INJ 4 MG VIAL IVP PRN (11:36)
[2018-01-01] MEDS ORDERED: BENADRYL INJ 50 MG VIAL IVP PRN (11:36)
[2018-01-01] MEDS ORDERED: PHENERGAN INJ 25 MG IVP PRN (11:36)
--- NOTE | 2018-01-01 12:14 | DR.CONSULT ---
Consult - Consultation for Day of: Date: 12/29/17 - Chief Complaint Chief Complaint: left wrtist fracture - History of Present Illness History of Present Illness: left wrist fracture. fall on outstretched hand on monday. noticed severe pain and swelling immediately. also noticed deformity. was seen in ER . xr shiowed distal radius fracture. past history sig for chronic narcotic medication for both sholder pain. both shoulder zia replacement - Past Medical History Past Medical History: Anxiety, Depression, Hypertension Additional Medical History: bipolar - Past Surgical History Surgical History: Appendectomy, Hysterectomy, Ortho Surgery, Other - Family History Family Medical History: Diabetes Mellitus, Cancer, [place], Coronary Artery Disease, Heart Failure, Hypertension - Social History Does patient currently use any type of tobacco product: Yes Have you used tobacco products in the last 12 months: Yes Type of Tobacco Use: Cigarettes Does any household member use tobacco: Yes Alcohol Use: Occasionally Drug Use: Marijuana - Medications Home Medications: No Known Drug Allergies Allergy (Verified 10/06/17 11:35) CONTINUE taking the following medications oxycodone-acetaminophen 1 tab PO Q6H PRN 12/29/17 [History] tramadol 1 - 2 tab PO Q4-6H PRN 12/29/17 [History] - Review of Systems Constitutional: No Symptoms Reported Eyes: No Symptoms Reported ENT: No Symptoms Reported Respiratory: No Symptoms Reported Cardiovascular: No Symptoms Reported Gastrointestinal: No Symptoms Reported Genitourinary: No Symptoms Reported Musculoskeletal: See HPI Skin: No Symptoms Reported Neurological: No Symptoms Reported - Physical Exam Vital Signs: Temperature 98.1 F Pulse Rate [Right Brachial] 74 Pulse Rate 85 Respiratory Rate 18 Blood Pressure [Right Arm] 117/67 Blood Pressure 143/76 O2 Sat by Pulse Oximetry 97 Oriented: Normal Eyes: Normal Ear: Normal Nose: Normal Throat: Normal Respiratory: Clear Throughout Cardiovascular: Normal : Normal Auscultation: Bowel Sounds: Normal Palpation: Normal Tenderness: Normal Skin: Normal Musculoskeletal: Left, Wrist, Swelling, Tender, Deformity, Instability, Crepitance Psychiatric: Normal Mood Description: Calm Speech Pattern: Clear - Plan Plan: distal radius fracture. ORIF monday. Splint . pain manamgement. RICE. - Allergies Allergies/Adverse Reactions: Allergies Allergy/AdvReac Type Severity Reaction Status Date / Time No Known Drug Allergies Allergy Verified 10/06/17 11:35
[2018-01-01 13:48] LABS: ALANINE AMINOTRANSFERASE 27 Units/L (12-78); ALBUMIN 2.9 g/dL (3.4-5.0); ALKALINE PHOSPHATASE 86 Units/L (46-116); ASPARTATE AMINO TRANSFERASE 26 Units/L (15-37); COR CA(FOR HYPOALB) 9.3 mg/dL (8.5-10.1); TOTAL PROTEIN 6.1 g/dL (6.4-8.2)
--- NOTE | 2018-01-01 14:36 | RAD ---
HISTORY: Post-operative left elbow pain Study: Two views left elbow Comparison: None Findings: No acute cortical disruption or dislocation can be identified. There is soft tissue swelling about t he elbow and a probable effusion. No cortical destruction or periostitis is identified. Incompletely visualized is surgical hardware within the distal radius and proximal humerus. IMPRESSION: Soft tissue swelling and effusion but without definite acute bony radiographic abnormality of the elb ow. Reported By:
--- NOTE | 2018-01-01 14:41 | RAD ---
HISTORY: Postop ORIF left radius fracture Study: Three-view left wrist Comparison: 12/29/2017 Technique: Three views of the left wrist are provided on a fiberglass splint. Findings: A ventral metallic plate is present with multiple screws transfixing the fractures of the left distal radius. No significant residual displacement or deformity is seen. There are tiny avulsion fractures involving the tip of the ulnar styloid. A normal radiocarpal anatomic alignment is seen. IMPRESSION: As above. Reported By:
[2018-01-01] MEDS ORDERED: SUPRANE IN ONE (15:08)
[2018-01-01] MEDS ORDERED: LTA KIT LIDOCAINE 4% ONE (15:08)
[2018-01-01] MEDS ORDERED: XYLOCAINE 2 % (PLAIN) ONE (15:08)
[2018-01-01] MEDS ORDERED: NEOSTIGMINE INJ ONE (15:08)
[2018-01-01] MEDS ORDERED: VERSED ONE (15:08)
[2018-01-01] MEDS ORDERED: NORCURON INJ 10 MG VIAL ONE (15:08)
[2018-01-01] MEDS ORDERED: ZOFRAN INJ 4 MG VIAL ONE (15:08)
[2018-01-01] MEDS ORDERED: QUELICIN (OR ANECTINE) ONE (15:08)
[2018-01-01] MEDS ORDERED: ROBINUL ONE (15:08)
[2018-01-01] MEDS ORDERED: NS 500 ML IV 500 ML IV ONE (17:17)
--- NOTE | 2018-01-01 17:35 | PCM.PROG ---
Progress Note - Progress Note for Day of Date: 12/30/17 - Subjective Subjective: WAS ADMITTED FOR PAIN CONTROL AND PENDING SURGERY DUE TO A TRANSVERSE FRACTURE OF DISTAL RADIAL METAPHYSIS WITH MILD DORSAL ANGULATION AND DISPLACEMTN OF DISTAL FRACTURE FRAGEMENT. ALSO, MINIMALLY DISPLACED ULNAR STYLOID PROCESS FRACTURE. TODAY, SHE CONTINUES TO COMPLAIN OF PAIN TO THE LEFT WRIST. ON EXAMINATION, HEART IS REGULAR IN RATE AND RHYTHM. BILATERAL LUNGS ARE CLEAR TO AUSCULATION. ABDOMEN IS ROUND, SOFT, AND NON-TENDER WITH NORMAL BOWEL SOUNDS NOTED IN ALL QUADRANTS. HER VITALS THIS MORNING ARE 98.4-66-18-93%-152/ 75. LABS WERE OBTAINED. SHE IS HEMODYNAMICALLY STABLE TODAY. SHE CONTINUES ON A MORPHINE SURGICAL CODER WELL PERCOCET 2 TABS Q6H PRN. WE WILL CONTINUE WITH CURRENT PLAN OF CARE AND PAIN CONTROL TODAY. PATIENT IS MEDICALLY STABLE FOR SURGERY ON MONDAY. WE WILL FOLLOW UP WITH AM LABS AND CONTINUE TO MONITOR PATIENT. - Past Medical Family Social History Past Med/Fam/Surg Hx: No changes since H&P Allergies: Allergies No Known Drug Allergies Allergy (Verified 10/06/17 11:35) - Review of Systems ROS: No change since H&P - Vital Signs and I&O's Vital Signs: Temperature 98.0 F Pulse Rate [Right Brachial] 86 Pulse Rate 64 Respiratory Rate 20 Blood Pressure [Right Arm] 136/82 Blood Pressure 145/68 O2 Sat by Pulse Oximetry 100 Intake and Output: Intake & Output 12/30/17 12/31/17 01/01/18 01/02/18 11:59 11:59 11:59 11:59 Intake Total 3060 / 3060 2808 / 2808 5580 / 5580 200 / 200 Output Total 1900 / 1900 Balance 3060 / 3060 2808 / 2808 3680 / 3680 200 / 200 - Physical Exam Oriented: Normal Eyes: Normal Ear: Normal Nose: Normal Throat: Normal Respiratory: Normal Cardiovascular: Normal : Normal Auscultation: Bowel Sounds: Normal Tenderness: Normal Skin: Normal Musculoskeletal: Left, Wrist, Swelling, Tender, Deformity, Instability, Crepitance Psychiatric: Normal Mood Description: Calm Affect: Normal Speech Pattern: Clear - Laboratory and Diagnostics Result Diagrams: 01/01/18 05:20 01/01/18 05:20 Labs: Laboratory WBC 5.3 X10^3/uL (3.6-10.0) 01/01/18 05:20 RBC 3.81 X10^6/uL (3.5-5.4) 01/01/18 05:20 Hgb 12.8 g/dL (12.0-16.0) 01/01/18 05:20 Hct 37.4 % (36.0-47.0) 01/01/18 05:20 MCV 98.3 fL (80.0-100.0) 01/01/18 05:20 MCH 33.7 pg (27.0-34.0) 01/01/18 05:20 MCHC 34.3 g/dL (33.0-35.0) 01/01/18 05:20 RDW 12.2 % (11.6-16.5) 01/01/18 05:20 Plt Count 189 X10^3/uL (150.0-450.0) 01/01/18 05:20 MPV 9.6 fL (7.4-11.0) 01/01/18 05:20 Neut % (Auto) 59.9 % (42.0-75.0) 01/01/18 05:20 Lymph % (Auto) 28.7 % (21.0-51.0) 01/01/18 05:20 [place] % (Auto) 6.9 % (0.0-13.0) 01/01/18 05:20 Eos % (Auto) 3.9 % (0.9-2.9) H 01/01/18 05:20 Baso % (Auto) 0.6 % (0.2-1.0) 01/01/18 05:20 Neut # (Auto) 3.2 x10^3/uL (2.2-4.8) 01/01/18 05:20 Lymph # (Auto) 1.5 X10^3/uL (1.3-2.9) 01/01/18 05:20 [place] # (Auto) 0.4 x10^3/uL (0.3-0.8) 01/01/18 05:20 Eos # (Auto) 0.2 x10^3/uL (0.0-0.2) 01/01/18 05:20 Baso # (Auto) 0.0 X10^3/uL (0.0-0.1) 01/01/18 05:20 Absolute Nucleated RBC 0.1 /100WBC 01/01/18 05:20 Sodium 140 mmol/L (136-145) 01/01/18 05:20 Corrected Sodium TNP 01/01/18 05:20 Potassium 3.4 mmol/L (3.5-5.1) L 01/01/18 05:20 Chloride 104 mmol/L (98-107) 01/01/18 05:20 Carbon Dioxide 33.1 mmol/L (21-32) H 01/01/18 05:20 BUN 9 mg/dL (7-18) 01/01/18 05:20 Creatinine 0.55 mg/dL (0.55-1.02) 01/01/18 05:20 Est GFR (MDRD) Af Amer > 60 (>60) 01/01/18 05:20 Est GFR (MDRD) Non-Af > 60 (>60) 01/01/18 05:20 Glucose 105 mg/dL (65-99) H 01/01/18 05:20 Calcium 8.4 mg/dL (8.5-10.1) L 01/01/18 05:20 Corrected Calcium 9.3 mg/dL (8.5-10.1) 01/01/18 05:20 Magnesium 1.9 mg/dL (1.7-2.9) 12/29/17 21:08 Total Bilirubin 0.40 mg/dL (0.2-1.0) 01/01/18 05:20 AST 26 Units/L (15-37) 01/01/18 05:20 ALT 27 Units/L (12-78) 01/01/18 05:20 Alkaline Phosphatase 86 Units/L (46-116) 01/01/18 05:20 Total Protein 6.1 g/dL (6.4-8.2) L 01/01/18 05:20 Albumin 2.9 g/dL (3.4-5.0) L 01/01/18 05:20 Globulin 3.2 g/dL (2.5-4.5) 01/01/18 05:20 Albumin/Globulin Ratio 0.9 Ratio (1.1-2.1) L 01/01/18 05:20 - Plan (1) Fracture of styloid process of left radius Status: Acute Qualifiers: Encounter type: initial encounter Fracture type: closed Fracture alignment: displaced Qualified Code(s): S52.512A - Displaced fracture of left radial styloid process, initial encounter for closed fracture Plan: morphine tightening machine operator, percocet 5/325 2 tabs po q6h prn, surgery on monday, continue to monitor (2) Traumatic closed torus fracture of metaphysis of left distal radius with minimal displacement with delayed healing Status: Acute Plan: morphine tightening machine operator, percocet 5/325 2 tabs po q6h prn, surgery on monday, continue to monitor (3) Bipolar 1 disorder Status: Chronic Plan: CONTINUE ELAVIL, CONTINUE TO MONITOR (4) Hyperlipidemia Status: Acute Qualifiers: Hyperlipidemia type: mixed hyperlipidemia Qualified Code(s): E78.2 - Mixed hyperlipidemia Plan: CONTINUE LIPITOR, CONTINUE TO MONITOR (5) Hypertension Status: Acute Qualifiers: Hypertension type: essential hypertension Qualified Code(s): I10 - Essential (primary) hypertension Plan: CONTINUE COZAAR, COTNINUE NORVASC, CONTINUE HCTZ, CONTINUE TO MONITOR (6) Depression Status: Acute Qualifiers: Depression Type: major depressive disorder Major depression recurrence: unspecified whether recurrent Active/Remission status: remission status unspecified Qualified Code(s): F32.9 - Major depressive disorder, single episode, unspecified Plan: CONTINUE ELAVIL, CONTINUE ZOLOFT, CONTINUE EFFEXOR, CONTINUE TO MONITOR
--- NOTE | 2018-01-01 17:44 | PCM.PROG ---
Progress Note - Progress Note for Day of Date: 12/31/17 - Subjective Subjective: WAS ADMITTED FOR PAIN CONTROL AND PENDING SURGERY DUE TO A TRANSVERSE FRACTURE OF DISTAL RADIAL METAPHYSIS WITH MILD DORSAL ANGULATION AND DISPLACEMTN OF DISTAL FRACTURE FRAGEMENT. ALSO, MINIMALLY DISPLACED ULNAR STYLOID PROCESS FRACTURE. TODAY, SHE CONTINUES TO COMPLAIN OF PAIN TO THE LEFT WRIST. ON EXAMINATION, HEART IS REGULAR IN RATE AND RHYTHM. BILATERAL LUNGS ARE CLEAR TO AUSCULATION. ABDOMEN IS ROUND, SOFT, AND NON-TENDER WITH NORMAL BOWEL SOUNDS NOTED IN ALL QUADRANTS. HER VITALS THIS MORNING ARE 97.6-69-18-94%-150/ 71. LABS WERE OBTAINED. POTASSIUM IS SLIGHTLY DECREASED AT 3.4, OTHERWISE, SHE IS HEMODYNAMICALLY STABLE TODAY. SHE CONTINUES ON A MORPHINE PROFESSOR OF EARLY CHILDHOOD EDUCATION WELL PERCOCET 2 TABS Q6H PRN. WE ORDERED A SLING YESTERDAY, BUT PATIENT REFUSED, STATING IT MAKES MY WRIST HURT WORSE BECAUSE IT IS CAUSING THIS CAST TO TWIST INSIDE OF IT. WE WILL CONTINUE WITH CURRENT PLAN OF CARE AND PAIN CONTROL TODAY. SHE IS SCHEDULE FOR SURGERY WITH IN THE MORNING. WE WILL FOLLOW UP WITH AM LABS AND CONTINUE TO MONITOR PATIENT. - Past Medical Family Social History Past Med/Fam/Surg Hx: No changes since H&P Allergies: Allergies No Known Drug Allergies Allergy (Verified 10/06/17 11:35) - Review of Systems ROS: No change since H&P - Vital Signs and I&O's Vital Signs: Temperature 98.0 F Pulse Rate [Right Brachial] 86 Pulse Rate 64 Respiratory Rate 20 Blood Pressure [Right Arm] 136/82 Blood Pressure 145/68 O2 Sat by Pulse Oximetry 100 Intake and Output: Intake & Output 12/30/17 12/31/17 01/01/18 01/02/18 11:59 11:59 11:59 11:59 Intake Total 3060 / 3060 2808 / 2808 5580 / 5580 200 / 200 Output Total 1900 / 1900 Balance 3060 / 3060 2808 / 2808 3680 / 3680 200 / 200 - Physical Exam Oriented: Normal Eyes: Normal Ear: Normal Nose: Normal Throat: Normal Respiratory: Normal Cardiovascular: Normal : Normal Auscultation: Bowel Sounds: Normal Palpation: Normal Tenderness: Normal Skin: Normal Musculoskeletal: Left, Wrist, Swelling, Tender, Deformity, Instability, Crepitance Psychiatric: Normal Mood Description: Calm Affect: Normal Speech Pattern: Clear - Laboratory and Diagnostics Result Diagrams: 01/01/18 05:20 01/01/18 05:20 Labs: Laboratory WBC 5.3 X10^3/uL (3.6-10.0) 01/01/18 05:20 RBC 3.81 X10^6/uL (3.5-5.4) 01/01/18 05:20 Hgb 12.8 g/dL (12.0-16.0) 01/01/18 05:20 Hct 37.4 % (36.0-47.0) 01/01/18 05:20 MCV 98.3 fL (80.0-100.0) 01/01/18 05:20 MCH 33.7 pg (27.0-34.0) 01/01/18 05:20 MCHC 34.3 g/dL (33.0-35.0) 01/01/18 05:20 RDW 12.2 % (11.6-16.5) 01/01/18 05:20 Plt Count 189 X10^3/uL (150.0-450.0) 01/01/18 05:20 MPV 9.6 fL (7.4-11.0) 01/01/18 05:20 Neut % (Auto) 59.9 % (42.0-75.0) 01/01/18 05:20 Lymph % (Auto) 28.7 % (21.0-51.0) 01/01/18 05:20 [place] % (Auto) 6.9 % (0.0-13.0) 01/01/18 05:20 Eos % (Auto) 3.9 % (0.9-2.9) H 01/01/18 05:20 Baso % (Auto) 0.6 % (0.2-1.0) 01/01/18 05:20 Neut # (Auto) 3.2 x10^3/uL (2.2-4.8) 01/01/18 05:20 Lymph # (Auto) 1.5 X10^3/uL (1.3-2.9) 01/01/18 05:20 [place] # (Auto) 0.4 x10^3/uL (0.3-0.8) 01/01/18 05:20 Eos # (Auto) 0.2 x10^3/uL (0.0-0.2) 01/01/18 05:20 Baso # (Auto) 0.0 X10^3/uL (0.0-0.1) 01/01/18 05:20 Absolute Nucleated RBC 0.1 /100WBC 01/01/18 05:20 Sodium 140 mmol/L (136-145) 01/01/18 05:20 Corrected Sodium TNP 01/01/18 05:20 Potassium 3.4 mmol/L (3.5-5.1) L 01/01/18 05:20 Chloride 104 mmol/L (98-107) 01/01/18 05:20 Carbon Dioxide 33.1 mmol/L (21-32) H 01/01/18 05:20 BUN 9 mg/dL (7-18) 01/01/18 05:20 Creatinine 0.55 mg/dL (0.55-1.02) 01/01/18 05:20 Est GFR (MDRD) Af Amer > 60 (>60) 01/01/18 05:20 Est GFR (MDRD) Non-Af > 60 (>60) 01/01/18 05:20 Glucose 105 mg/dL (65-99) H 01/01/18 05:20 Calcium 8.4 mg/dL (8.5-10.1) L 01/01/18 05:20 Corrected Calcium 9.3 mg/dL (8.5-10.1) 01/01/18 05:20 Magnesium 1.9 mg/dL (1.7-2.9) 12/29/17 21:08 Total Bilirubin 0.40 mg/dL (0.2-1.0) 01/01/18 05:20 AST 26 Units/L (15-37) 01/01/18 05:20 ALT 27 Units/L (12-78) 01/01/18 05:20 Alkaline Phosphatase 86 Units/L (46-116) 01/01/18 05:20 Total Protein 6.1 g/dL (6.4-8.2) L 01/01/18 05:20 Albumin 2.9 g/dL (3.4-5.0) L 01/01/18 05:20 Globulin 3.2 g/dL (2.5-4.5) 01/01/18 05:20 Albumin/Globulin Ratio 0.9 Ratio (1.1-2.1) L 01/01/18 05:20 - Plan (1) Fracture of styloid process of left radius Status: Acute Qualifiers: Encounter type: initial encounter Fracture type: closed Fracture alignment: displaced Qualified Code(s): S52.512A - Displaced fracture of left radial styloid process, initial encounter for closed fracture Plan: morphine nuclear control operator, percocet 5/325 2 tabs po q6h prn, surgery on monday, continue to monitor (2) Traumatic closed torus fracture of metaphysis of left distal radius with minimal displacement with delayed healing Status: Acute Plan: morphine nuclear control operator, percocet 5/325 2 tabs po q6h prn, surgery on monday, continue to monitor (3) Bipolar 1 disorder Status: Chronic Plan: CONTINUE ELAVIL, CONTINUE TO MONITOR (4) Hyperlipidemia Status: Acute Qualifiers: Hyperlipidemia type: mixed hyperlipidemia Qualified Code(s): E78.2 - Mixed hyperlipidemia Plan: CONTINUE LIPITOR, CONTINUE TO MONITOR (5) Hypertension Status: Acute Qualifiers: Hypertension type: essential hypertension Qualified Code(s): I10 - Essential (primary) hypertension Plan: CONTINUE COZAAR, COTNINUE NORVASC, CONTINUE HCTZ, CONTINUE TO MONITOR (6) Depression Status: Acute Qualifiers: Depression Type: major depressive disorder Major depression recurrence: unspecified whether recurrent Active/Remission status: remission status unspecified Qualified Code(s): F32.9 - Major depressive disorder, single episode, unspecified Plan: CONTINUE ELAVIL, CONTINUE ZOLOFT, CONTINUE EFFEXOR, CONTINUE TO MONITOR
[2018-01-01] MEDS: LIPITOR TAB 40 MG PO SCH (22:27)
[2018-01-01] MEDS: ELAVIL PO SCH (22:27)
[2018-01-01] MEDS: COLACE CAP 100 MG PO SCH (22:27)
[2018-01-01] MEDS: AMBIEN PO SCH (22:27)
[2018-01-02] MEDS: PERCOCET TAB 5/325 MG PO PRN ×2 (01:18→09:59)
[2018-01-02 05:44] LABS: ALANINE AMINOTRANSFERASE 36 Units/L (12-78); ALBUMIN 2.8 g/dL (3.4-5.0); ALKALINE PHOSPHATASE 90 Units/L (46-116); ASPARTATE AMINO TRANSFERASE 30 Units/L (15-37); BLOOD UREA NITROGEN 7 mg/dL (7-18); CALCIUM 8.5 mg/dL (8.5-10.1); CHLORIDE 105 mmol/L (98-107); COR CA(FOR HYPOALB) 9.5 mg/dL (8.5-10.1); COR NA(FOR HYPERGLY) 144 mmol/L (136-145); CREATININE 0.49 mg/dL (0.55-1.02); SODIUM 143 mmol/L (136-145); eGFR NON BLACK RACES > 60 (>60)
[2018-01-02] MEDS: KLONOPIN TAB 1 MG PO SCH ×2 (05:45→13:06)
[2018-01-02 06:12] LABS: BASOPHILS % (AUTO) 0.3 % (0.2-1.0); EOSINOPHILS % (AUTO) 0.3 % (0.9-2.9); HEMATOCRIT 35.2 % (36.0-47.0); HEMOGLOBIN 12.1 g/dL (12.0-16.0); LYMPHOCYTES # (AUTO) 1.1 X10^3/uL (1.3-2.9); LYMPHOCYTES % (AUTO) 15.2 % (21.0-51.0); MEAN CORPUSCULAR HEMOGLOBIN 33.7 pg (27.0-34.0); MEAN CORPUSCULAR HGB CONC 34.4 g/dL (33.0-35.0); MEAN CORPUSCULAR VOLUME 98.2 fL (80.0-100.0); MEAN PLATELET VOLUME 10.5 fL (7.4-11.0); MONOCYTES # (AUTO) 0.5 x10^3/uL (0.3-0.8); MONOCYTES % (AUTO) 6.7 % (0.0-13.0); NEUTROPHILS # (AUTO) 5.7 x10^3/uL (2.2-4.8); NEUTROPHILS % (AUTO) 77.5 % (42.0-75.0); PLATELET COUNT 201 X10^3/uL (150.0-450.0); RED BLOOD COUNT 3.58 X10^6/uL (3.5-5.4); RED CELL DISTRIBUTION WIDTH 12.3 % (11.6-16.5); WHITE BLOOD COUNT 7.4 X10^3/uL (3.6-10.0)
[2018-01-02] MEDS: K-LYTE EFFERVESCENT PO PRN (06:35)
[2018-01-02] MEDS: MILK OF MAGNESIA PO SCH ×2 (08:23→12:18)
[2018-01-02] MEDS: HYDROCHLOROTHIAZIDE 12.5 MG CAP PO SCH (09:00)
[2018-01-02] MEDS: NICOTINE PATCH TD SCH (09:00)
[2018-01-02] MEDS: EFFEXOR TAB 75 MG (BID DOSING) PO SCH (09:00)
[2018-01-02] MEDS: COZAAR PO SCH (09:00)
[2018-01-02] MEDS: ZOLOFT PO SCH (09:01)
[2018-01-02] MEDS: NORVASC TAB 10 MG PO SCH (09:01)
--- NOTE | 2018-01-02 10:44 | PCM.PROG ---
Progress Note - Progress Note for Day of Date: 01/01/18 - Subjective Subjective: WAS ADMITTED FOR PAIN CONTROL AND PENDING SURGERY DUE TO A TRANSVERSE FRACTURE OF DISTAL RADIAL METAPHYSIS WITH MILD DORSAL ANGULATION AND DISPLACEMTN OF DISTAL FRACTURE FRAGEMENT. ALSO, MINIMALLY DISPLACED ULNAR STYLOID PROCESS FRACTURE. TODAY, SHE CONTINUES TO COMPLAIN OF PAIN TO THE LEFT WRIST. ON EXAMINATION, HEART IS REGULAR IN RATE AND RHYTHM. BILATERAL LUNGS ARE CLEAR TO AUSCULATION. ABDOMEN IS ROUND, SOFT, AND NON-TENDER WITH NORMAL BOWEL SOUNDS NOTED IN ALL QUADRANTS. HER VITALS THIS MORNING ARE 98.7-74-20-96%-117/ 67. LABS WERE OBTAINED. POTASSIUM IS SLIGHTLY DECREASED AT 3.4, OTHERWISE, SHE IS HEMODYNAMICALLY STABLE TODAY. SHE CONTINUES ON A MORPHINE RN PRODUCTION WELL PERCOCET 2 TABS Q6H PRN. SHE IS SCHEDULE FOR SURGERY WITH TODAY. WE WILL FOLLOW UP WITH AM LABS AND CONTINUE TO MONITOR PATIENT. - Past Medical Family Social History Past Med/Fam/Surg Hx: No changes since H&P Allergies: Allergies No Known Drug Allergies Allergy (Verified 10/06/17 11:35) - Review of Systems ROS: No change since H&P - Vital Signs and I&O's Vital Signs: Temperature 97.7 F Pulse Rate [Right Brachial] 69 Pulse Rate 64 Respiratory Rate 16 Blood Pressure [Right Arm] 117/65 Blood Pressure 145/68 O2 Sat by Pulse Oximetry 96 Intake and Output: Intake & Output 12/30/17 12/31/17 01/01/18 01/02/18 11:59 11:59 11:59 11:59 Intake Total 3060 / 3060 2808 / 2808 5580 / 5580 740 / 740 Output Total 1900 / 1900 Balance 3060 / 3060 2808 / 2808 3680 / 3680 740 / 740 - Physical Exam Oriented: Normal Eyes: Normal Ear: Normal Nose: Normal Throat: Normal Respiratory: Normal Cardiovascular: Normal : Normal Auscultation: Bowel Sounds: Normal Palpation: Normal Tenderness: Normal Skin: Normal Musculoskeletal: Left, Wrist, Swelling, Tender, Deformity, Instability, Crepitance Psychiatric: Normal Mood Description: Calm Affect: Normal Speech Pattern: Clear, Appropriate - Laboratory and Diagnostics Result Diagrams: 01/02/18 04:25 01/02/18 04:25 Labs: Laboratory WBC 7.4 X10^3/uL (3.6-10.0) 01/02/18 04:25 RBC 3.58 X10^6/uL (3.5-5.4) 01/02/18 04:25 Hgb 12.1 g/dL (12.0-16.0) 01/02/18 04:25 Hct 35.2 % (36.0-47.0) L 01/02/18 04:25 MCV 98.2 fL (80.0-100.0) 01/02/18 04:25 MCH 33.7 pg (27.0-34.0) 01/02/18 04:25 MCHC 34.4 g/dL (33.0-35.0) 01/02/18 04:25 RDW 12.3 % (11.6-16.5) 01/02/18 04:25 Plt Count 201 X10^3/uL (150.0-450.0) 01/02/18 04:25 MPV 10.5 fL (7.4-11.0) 01/02/18 04:25 Neut % (Auto) 77.5 % (42.0-75.0) H 01/02/18 04:25 Lymph % (Auto) 15.2 % (21.0-51.0) L 01/02/18 04:25 [place] % (Auto) 6.7 % (0.0-13.0) 01/02/18 04:25 Eos % (Auto) 0.3 % (0.9-2.9) L 01/02/18 04:25 Baso % (Auto) 0.3 % (0.2-1.0) 01/02/18 04:25 Neut # (Auto) 5.7 x10^3/uL (2.2-4.8) H 01/02/18 04:25 Lymph # (Auto) 1.1 X10^3/uL (1.3-2.9) L 01/02/18 04:25 [place] # (Auto) 0.5 x10^3/uL (0.3-0.8) 01/02/18 04:25 Eos # (Auto) 0.0 x10^3/uL (0.0-0.2) 01/02/18 04:25 Baso # (Auto) 0.0 X10^3/uL (0.0-0.1) 01/02/18 04:25 Absolute Nucleated RBC 0.1 /100WBC 01/02/18 04:25 Sodium 143 mmol/L (136-145) 01/02/18 04:25 Corrected Sodium 144 mmol/L (136-145) 01/02/18 04:25 Potassium 3.4 mmol/L (3.5-5.1) L 01/02/18 04:25 Chloride 105 mmol/L (98-107) 01/02/18 04:25 Carbon Dioxide 33.0 mmol/L (21-32) H 01/02/18 04:25 BUN 7 mg/dL (7-18) 01/02/18 04:25 Creatinine 0.49 mg/dL (0.55-1.02) L 01/02/18 04:25 Est GFR (MDRD) Af Amer > 60 (>60) 01/02/18 04:25 Est GFR (MDRD) Non-Af > 60 (>60) 01/02/18 04:25 Glucose 130 mg/dL (65-99) H 01/02/18 04:25 Calcium 8.5 mg/dL (8.5-10.1) 01/02/18 04:25 Corrected Calcium 9.5 mg/dL (8.5-10.1) 01/02/18 04:25 Magnesium 1.9 mg/dL (1.7-2.9) 12/29/17 21:08 Total Bilirubin 0.30 mg/dL (0.2-1.0) 01/02/18 04:25 AST 30 Units/L (15-37) 01/02/18 04:25 ALT 36 Units/L (12-78) 01/02/18 04:25 Alkaline Phosphatase 90 Units/L (46-116) 01/02/18 04:25 Total Protein 6.0 g/dL (6.4-8.2) L 01/02/18 04:25 Albumin 2.8 g/dL (3.4-5.0) L 01/02/18 04:25 Globulin 3.2 g/dL (2.5-4.5) 01/02/18 04:25 Albumin/Globulin Ratio 0.9 Ratio (1.1-2.1) L 01/02/18 04:25 - Plan (1) Fracture of styloid process of left radius Status: Acute Qualifiers: Encounter type: initial encounter Fracture type: closed Fracture alignment: displaced Qualified Code(s): S52.512A - Displaced fracture of left radial styloid process, initial encounter for closed fracture Plan: morphine temperature logging operator, percocet 5/325 2 tabs po q6h prn, surgery TODAY, continue to monitor (2) Traumatic closed torus fracture of metaphysis of left distal radius with minimal displacement with delayed healing Status: Acute Plan: morphine temperature logging operator, percocet 5/325 2 tabs po q6h prn, surgery TODAY, continue to monitor (3) Bipolar 1 disorder Status: Chronic Plan: CONTINUE ELAVIL, CONTINUE TO MONITOR (4) Hyperlipidemia Status: Acute Qualifiers: Hyperlipidemia type: mixed hyperlipidemia Qualified Code(s): E78.2 - Mixed hyperlipidemia Plan: CONTINUE LIPITOR, CONTINUE TO MONITOR (5) Hypertension Status: Acute Qualifiers: Hypertension type: essential hypertension Qualified Code(s): I10 - Essential (primary) hypertension Plan: CONTINUE COZAAR, COTNINUE NORVASC, CONTINUE HCTZ, CONTINUE TO MONITOR (6) Depression Status: Acute Qualifiers: Depression Type: major depressive disorder Major depression recurrence: unspecified whether recurrent Active/Remission status: remission status unspecified Qualified Code(s): F32.9 - Major depressive disorder, single episode, unspecified Plan: CONTINUE ELAVIL, CONTINUE ZOLOFT, CONTINUE EFFEXOR, CONTINUE TO MONITOR
[2018-01-02 12:11] VITALS: BP 121/76
--- NOTE | 2018-01-09 10:16 | OR.GENERIC ---
Post-Op Note Generic - Post-Op Note Operative Report: PREOPERATIVE DIAGNOSIS-LEFT WRIST DISTAL RADIUS FRACTURE, INTRA-ARTICULAR, OSTEOPOROTIC POSTOPERATIVE DIAGNOSIS-LEFT WRIST DISTAL RADIUS FRACTURE, INTRA-ARTICULAR, OSTEOPOROTIC PROCEDURE-LEFT WRIST DISTAL RADIUS FRACTURE OPEN REDUCTION AND FIXATION WITH PLATE AND SCREWS. IMPLANT USED- JET distal radius locking compression plate DATE OF SURGERY- 01/01/2018 INDICATION-patient is a 57-year-old female who had a fall at home while carrying grocery bags. She ended up falling on her LEFT wrist and noticed severe pain and swelling and deformity. She was brought to the emergency room by the EMS. Clinical and radiological examination confirmed that it is a displaced distal radius intra-articular fracture. She had medical issues and was admitted under medical Department.. A consult was placed for me. I examined the patient and history was again noted. She had a displaced intra- articular fracture of the distal end of LEFT radius. Dorsal comminution was noted. It was osteoporotic fracture. Natural history and treatment discussions were done with the patient as well as the . Closed reduction with K wire versus open reduction internal fixation with plate and screws were discussed wwith the patient as well as the . Loss of reduction and collapse of the fracture site after closed reduction maldonado and possibility especially keeping in mind her dorsal comminution. So I suggested open reduction internal fixation with a plate and screw. They understood and verbalized the same. The risks and benefits involved was discussed with them. complications including but not limited to nfection, osteomyelitis, wound healing issues, nonunion, malunion, implant failure, loss of reduction, persistence of pain, just stiffness and arthritis, need for implant removal,, extensive tendon injury where he feels the complications which were discussed with them. They understood and verbalized to same. PREOPERATIVE- patient is seen in the preoperative holding area. The LEFT upper limb was marked. Patient was met by the metal container maker.. She got an regional block. Again the consent was revisited. Patient consented for the procedure. She got an appropriate antibiotic. PROCEDURE- patient was brought to the operating room. Patient was placed supine on the operating table. LEFT upper limb was placed on a hand table. An nonsterile pneumatic tourniquet was applied but was not inflated. Patient was placed under general anesthesia. Successful endotracheal intubation was completed. The LEFT limb was prepped and draped. a trial reduction was tried with traction and countertraction, direct manipulation of the distal fragment dorsally, palmar flexion of the hand and pronation. Reduction was achieved anatomically and was confirmed with the C-arm. Multiple K wires placed to hold the reduction in place. Surgical incision was marked. Tourniquet was inflated. a modified DHRUV approach was chosen. The FCR tendon wwas palpated and a skin incision of about 10 cm placed laterally. Dissection carried down through subcutaneous tissue to expose the FCR tendon. The tendon sheath opened and the FCR tendon retracted ulnarly. Incision deepened between FPL and the radial artery. Care taken to preserve the radial artery and the median nerve. Retractors placed to expose the pronator quadratus muscle. aan L-shaped incision made in the portal quadratus along the radial and the distal end corresponding to the watershed line. Portal quadratus elevated with the help off periosteum elevator and TAMI retractors placed. tthe joint line identified with an hypodermic needle. fracture pattern showed an intra-articular fracture. There were volar fragments and the split was noted.hematoma was evacuated. fracture fragment reduced. Reduction was maintained with the help of the K wires. anatomical reduction was obtained and was confirmed with C-arm. An appropriate plate was chosen and was placed iin the neck the watershed line. This was found to be placed appropriately in the AP and the lateral C-arm images. The 1st screw was placed in nonlocking mode on the distal ulnar side of the plate and checked under C-arm. The rest of the screws were also placed in a locking mode starting ulnarly and progressing radially. All the screws length where 70-70 percent of them measured and made sure that there was no penetration dorsally causing tendon irritation and rupture. This was confirmed in multiple images and no screw penetration was noted. The proximal screws were placed and the oblong as well as circular hole in a locking fashion. It is made sure that the articular surface was maintained as well as the radial tilt and the radial length. After the fixation the K wires were taken out. The distal radioulnar joint was assessed and was found to be stable. Thorough irrigation was done. The pronator quadratus was sutured over the plate. Tourniquet was deflated and hemostasis was obtained. Radial artery was found to be intact. The rest of the wound was closed in layers and made sure that the deep fascia was not closed. Sterile dressing was applied and the splint was reapplied. RECOVERY- patient was broken up from the surgery. Patient was successfully extubated. Patient was afebrile and her vitals stable. Her pain was well controlled. Patient had good capillary refill and good sensation distally. Postoperative x-rays showed an anatomically aligneddistal and radius with plate and screws. No complications were noted. The family was updated about the procedure. Postoperative instructions were given to them. Instructions to keep the dressing clean and dry. Instructions to ice the extremity without getting the dressing wet as well as elevation and active finger movements were discussed with them. Instructions to use prescribed medications was discussed with them. Instructions to follow-up was discussed with them. They understood and verbalized the same.
--- NOTE | 2018-01-24 22:49 | DR.CARTERD ---
- Discharge Summary for: Discharge Summary for Date of:: 01/02/18 - Admission Date Date of Admission: 12/29/17 - Admission Diagnoses Admission Diagnosis: (1) Fracture of styloid process of left radius (2) Traumatic closed torus fracture of metaphysis of left distal radius with minimal displacement with delayed healing - Discharge Date Discharge Date: 01/02/18 - Discharge Diagnoses Discharge Diagnosis: (1) Fracture of styloid process of left radius (2) Traumatic closed torus fracture of metaphysis of left distal radius with minimal displacement with delayed healing (3) Bipolar 1 disorder (4) Hyperlipidemia (5) Hypertension (6) Depression - Hospital Course Hospital Course: Ms. Mckeon is a 57 year old patient of ours who presented to the emergency room with reports of a fall at home one night prior. Patient reported severe left hand/wrist pain and swelling. Patient noted with an obvious deformity to left wrist. Patient stated she took two Percocet at home without relief in pain. On arrival, vitals were 98.3, 76, 18, 95% RA, 135/66. X-ray obtained on admission revealed transversely oriented fracture of the distal radial metaphysis with mild dorsal angulation and displacement of distal fracture fragment and minimally displaced ulnar styloid process fracture. Patient given two doses of Dilaudid in the emergency room with continued reports of pain. , ER physician consulted with , orthopedics. recommended admission for pain control and surgical clearance and surgery on Monday. Patient admitted to the hospital and started on a Morphine LICENSED MARRIAGE AND FAMILY THERAPIST at 2mg every 10minutes on demand for pain control. Day two, she continued with pain to the left wrist. On exam, heart was regular in rate and rhythm; bilateral lungs clear to auscultation. Vitals were stable. She continued on Morphine LICENSED MARRIAGE AND FAMILY THERAPIST as well as Percocet. We continued treatment and cleared patient for surgery. Day three, patient continued with significant pain to left wrist and we continued pain control measures. Dr. Esparza planned for surgery on day four. Day four, patient was taken to OR per Dr. Esparza to repair fracture. Patient tolerated procedure well. We continued pain medications for pain control. On day five, patient was doing well. She reported pain was much better and controlled with po pain medication. Dr. Esparza released patient for discharge. Vital signs stable. Labs wnl. We planned for discharge. Instructions for medications and follow up were discussed with patient and family, both voiced understanding. Patient discharged home in stable condition with family. - Discharge Medications Discharge Medications: Home Medication List oxycodone-acetaminophen 1 tab PO Q6H PRN 12/29/17 [History] tramadol 1 - 2 tab PO Q4-6H PRN 12/29/17 [History] Prescriptions: Home medications Losartan/Hydrochlorothiazide [Losartan-Hctz 100-12.5 mg Tab] 1 tab PO DAILY amitriptyline 1 tab PO HS 10/06/17 amlodipine 1 tab PO DAILY 10/06/17 atorvastatin 1 tab PO HS 10/06/17 clonazepam 1 tab PO TID PRN 10/06/17 sertraline 100 mg PO DAILY 10/06/17 venlafaxine 1 tab PO BID 10/06/17 zolpidem 1 tab PO HS 10/06/17 - Discharge Disposition Discharge Disposition: Patient is to follow up with Dr. Esparza in one week and in our office in one week.
== END 2018-01-02 14:15 | disposition home or self-care (01) | DRG 511 ==
LOC: ER 08:36 → MED/SURG 08:36
PROVIDERS: ADMIT Internal Medicine; ATTEND Internal Medicine
DX: R94.31 Abnormal electrocardiogram [ECG] [EKG]; E78.2 Mixed hyperlipidemia; F41.8 Other specified anxiety disorders; Y92.89 Other specified places as the place of occurrence of the external cause; R26.89 Other abnormalities of gait and mobility; I10 Essential (primary) hypertension; W01.198A Fall on same level from slipping, tripping and stumbling with subsequent striking against other object, initial encounter; S52.572A Other intraarticular fracture of lower end of left radius, initial encounter for closed fracture; F31.89 Other bipolar disorder; S52.512A Displaced fracture of left radial styloid process, initial encounter for closed fracture
CPT/HCPCS: 36415; 71010; 71045; 73070; 73100; 76000; 80048; 80053; 83735; 85025; 93005; 94760; 96365; 96372; 96374; 96375; 97162; 99283; 99284; A4216; A4222; S0020; G0378; J0330; J0690; J1100; J1170; J2250; J2271; J2405; J2710; J3010; J3480; J3490; J7040; J7120; J8499

== ENCOUNTER 2021-07-06 08:37 | Observation (INO) ==
[2021-07-06] MEDS ORDERED: NORCO 7.5/325 MG TAB PO PRN (11:48)
[2021-07-06] MEDS ORDERED: PHARMACY CONSULT - VANCOMYCIN XX SCH (11:48)
[2021-07-06] MEDS ORDERED: NS 1,000 ML IV 1,000 ML ONE (11:53)
[2021-07-06 13:00] LABS: BASOPHILS # (AUTO) 0.2 X10^3/uL (0.0-0.1); BASOPHILS % (AUTO) 3.2 % (0.2-1.0); EOSINOPHILS # (AUTO) 0.1 x10^3/uL (0.0-0.2); EOSINOPHILS % (AUTO) 1.6 % (0.9-2.9); HEMATOCRIT 37.4 % (36.0-47.0); HEMOGLOBIN 12.6 g/dL (12.0-16.0); LYMPHOCYTES # (AUTO) 0.9 X10^3/uL (1.3-2.9); LYMPHOCYTES % (AUTO) 11.3 % (21.0-51.0); MEAN CORPUSCULAR HEMOGLOBIN 32.8 pg (27.0-34.0); MEAN CORPUSCULAR HGB CONC 33.8 g/dL (33.0-35.0); MEAN PLATELET VOLUME 10.4 fL (7.4-11.0); MONOCYTES # (AUTO) 0.4 x10^3/uL (0.3-0.8); MONOCYTES % (AUTO) 4.7 % (0.0-13.0); NEUTROPHILS # (AUTO) 6.1 x10^3/uL (2.2-4.8); NEUTROPHILS % (AUTO) 79.2 % (42.0-75.0); PLATELET COUNT 225 X10^3/uL (150.0-450.0); RED BLOOD COUNT 3.85 X10^6/uL (3.5-5.4); WHITE BLOOD COUNT 7.7 X10^3/uL (3.6-10.0)
[2021-07-06 13:05] LABS: ALANINE AMINOTRANSFERASE 59 Units/L (12-78); ALBUMIN 3.9 g/dL (3.4-5.0); ALKALINE PHOSPHATASE 185 Units/L (46-116); ASPARTATE AMINO TRANSFERASE 33 Units/L (15-37); BLOOD UREA NITROGEN 20 mg/dL (7-18); CALCIUM 9.3 mg/dL (8.5-10.1); CARBON DIOXIDE 32.9 mmol/L (21-32); CHLORIDE 100 mmol/L (98-107); CREATININE 0.81 mg/dL (0.55-1.02); SODIUM 140 mmol/L (136-145); TOTAL PROTEIN 8.1 g/dL (6.4-8.2); eGFR NON BLACK RACES > 60 (>60)
[2021-07-06 13:12] LABS: PLATELET MORPHOLOGY COMMENT NORMAL (NORMAL)
[2021-07-06] MEDS: NS 1,000 ML IV 1,000 ML IV SCH (13:20)
[2021-07-06] MEDS ORDERED: ULTRAM PO PRN (14:21)
[2021-07-06] MEDS: ZOSYN VIAL 3.375 GRAMS 3.375 G in NS 100 ML IV + SPIKE MINIBAG* 100 ML IV SCH ×3 (14:55→21:27)
[2021-07-06] MEDS: KLONOPIN TAB 1 MG PO PRN ×2 (14:55→21:27)
[2021-07-06] MEDS: PERCOCET TAB 5/325 MG PO PRN ×2 (14:56→21:00)
[2021-07-06] MEDS ORDERED: DESYREL PO SCH (15:00)
[2021-07-06] MEDS ORDERED: ZOLOFT PO SCH (15:00)
[2021-07-06] MEDS: VANCOMYCIN IV *PREMIX 1.25 G/250 ML BAG 1.25 G/250 ML PIGGYBACK IV SCH (15:17)
[2021-07-06] MEDS ORDERED: POTASSIUM CHL 40 MEQ/NS 0.45% 500 ML IV PRN (17:11)
[2021-07-06] MEDS ORDERED: K-DUR TAB 20 MEQ PO PRN (17:11)
[2021-07-06] MEDS ORDERED: POTASSIUM CHLORIDE LIQ 20 MEQ UDC PO PRN (17:11)
[2021-07-06] MEDS ORDERED: K-RIDER 10 MEQ/NS 100 ML 10 MEQ/100 ML BAG IV PRN (17:11)
[2021-07-06] MEDS ORDERED: POTASSIUM CHL 60 MEQ/NS 0.45% 500 ML IV PRN (17:11)
[2021-07-06] MEDS ORDERED: MAGNESIUM SULFATE 1 GRAM/100 mL PREMIX 1 G/100 ML BAG IV PRN (17:11)
[2021-07-06] MEDS ORDERED: KLOR-CON PO PRN (17:11)
[2021-07-06] MEDS ORDERED: MICRO K EXTEN CAP 10 MEQ PO PRN (17:11)
[2021-07-06] MEDS ORDERED: ZOLOFT ONE (20:03)
[2021-07-06] MEDS: DESYREL PO SCH (21:26)
[2021-07-06] MEDS: AMBIEN PO SCH (21:26)
[2021-07-06] MEDS: ZOLOFT PO SCH (21:26)
[2021-07-06] MEDS: EFFEXOR TAB 75 MG (BID DOSING) PO SCH (21:27)
[2021-07-06] MEDS: ZOCOR TAB 40 MG PO SCH (21:27)
[2021-07-06] MEDS: ELAVIL PO SCH (21:27)
[2021-07-07] MEDS: NS 1,000 ML IV 1,000 ML IV SCH ×2 (05:28→13:50)
[2021-07-07] MEDS: ZOSYN VIAL 3.375 GRAMS 3.375 G in NS 100 ML IV + SPIKE MINIBAG* 100 ML IV SCH ×3 (05:28→21:50)
[2021-07-07] MEDS: KLONOPIN TAB 1 MG PO PRN ×3 (06:11→20:24)
[2021-07-07 06:12] LABS: BASOPHILS # (AUTO) 0.1 X10^3/uL (0.0-0.1); EOSINOPHILS # (AUTO) 0.2 x10^3/uL (0.0-0.2); EOSINOPHILS % (AUTO) 3.4 % (0.9-2.9); HEMATOCRIT 42.6 % (36.0-47.0); HEMOGLOBIN 14.4 g/dL (12.0-16.0); LYMPHOCYTES # (AUTO) 1.8 X10^3/uL (1.3-2.9); LYMPHOCYTES % (AUTO) 31.3 % (21.0-51.0); MEAN CORPUSCULAR HEMOGLOBIN 32.8 pg (27.0-34.0); MEAN CORPUSCULAR HGB CONC 33.7 g/dL (33.0-35.0); MEAN CORPUSCULAR VOLUME 97.3 fL (80.0-100.0); MEAN PLATELET VOLUME 9.9 fL (7.4-11.0); MONOCYTES # (AUTO) 0.3 x10^3/uL (0.3-0.8); NEUTROPHILS # (AUTO) 3.4 x10^3/uL (2.2-4.8); NEUTROPHILS % (AUTO) 58.3 % (42.0-75.0); PLATELET COUNT 259 X10^3/uL (150.0-450.0); RED BLOOD COUNT 4.38 X10^6/uL (3.5-5.4); WHITE BLOOD COUNT 5.7 X10^3/uL (3.6-10.0)
[2021-07-07] MEDS: PERCOCET TAB 5/325 MG PO PRN ×3 (06:12→20:25)
--- NOTE | 2021-07-07 06:18 | RAD ---
HISTORYRight lower extremity cellulitis preop I and DSTUDYChest [id number] size is normal. Ya are normal. Lung sr are clear. No pleural effusions or pneumothoraces are identified. Bony thorax is unremarkable with the exception of bilateral shoulder arthroplasties.IMPRESSIONLungs clearElectronically signed by: ABEL PANCHAL (Jul 07, 2021 06:17:05)
[2021-07-07 06:45] LABS: ALANINE AMINOTRANSFERASE 52 Units/L (12-78); ALBUMIN 3.9 g/dL (3.4-5.0); ALKALINE PHOSPHATASE 186 Units/L (46-116); ASPARTATE AMINO TRANSFERASE 29 Units/L (15-37); BLOOD UREA NITROGEN 12 mg/dL (7-18); CALCIUM 9.4 mg/dL (8.5-10.1); CARBON DIOXIDE 27.6 mmol/L (21-32); CHLORIDE 104 mmol/L (98-107); COR NA(FOR HYPERGLY) 142 mmol/L (136-145); CREATININE 0.81 mg/dL (0.55-1.02); MAGNESIUM 2.2 mg/dL (1.7-2.9); SODIUM 141 mmol/L (136-145); TOTAL PROTEIN 8.3 g/dL (6.4-8.2); eGFR NON BLACK RACES > 60 (>60)
[2021-07-07] MEDS: EFFEXOR TAB 75 MG (BID DOSING) PO SCH ×2 (08:18→20:24)
[2021-07-07] MEDS: ZOLOFT PO SCH ×2 (08:18→20:24)
[2021-07-07] MEDS: LASIX PO SCH (08:18)
[2021-07-07] MEDS: VANCOMYCIN IV *PREMIX 1.25 G/250 ML BAG 1.25 G/250 ML PIGGYBACK IV SCH ×2 (08:19→20:24)
--- NOTE | 2021-07-07 08:31 | DR.UPDATE ---
H&P Update History and Physical Update: History and Physical reviewed and patient examined. Changes noted: Yes with the following: IS A 61 YEAR OLD PATIENT OF OURS. SHE HAS BEEN FOLLOWED AND TREATED IN THE OFFICE FOR RIGHT LOWER EXTREMITY CELLULITIS DUE TO A PUNCTURE WOUND. PATIENT REPORTS THAT SHE BACKED INTO A GLASS/CERAMIC STATUE THAT WAS IN HER BEDROOM, AND PART OF THE STATUE PUNCTURED HER RIGHT CALF. SHE HAS BEEN TAKING CIPROFLOXACIN 750MG BID X 12 DAYS AND APPLYING GENTAMICIN CREAM TWICE A DAY. SHE DENIES IMPROVEMENT IN SYMPTOMS DESPITE COMPLIANCE WITH MEDICATIONS. PATIENTS RIGHT CALF IS NOTED WITH ERYTHEMA, EDEMA, AND WOUND. PATIENT REPORTS PAIN 6/10. SHE WAS ADMITTED TO THE HOSPITAL FOR FURTHER EVALUATION AND TREATMENT. ON ARRIVAL TO THE HOSPITAL, VITALS WERE 98.0-68-18-97%-144/69. LABS WERE OBTAINED. ABNORMAL LAB VALUES INCLUDE THE FOLLOWING: POTASSIUM 3.2, CARBON DIOXIDE 32.9, BUN 20, GLUCOSE 108, ALK PHOS 185. COVID-19 NEGATIVE. WOUND AND BLOOD CULTURES WERE SET UP. SHE WAS STARTED ON NORMAL SALINE AT 80 ML/HR, ZOSYN 3.375G IV TID, VANCOMYCIN 1.25G IF Q12H, PERCOCET PRN, THE POTASSIUM AND MAGNESIUM PROTOCOLS, AND HER HOME MEDICATIONS WERE RESUMED. WE WILL CONSULT WITH , GENERAL SURGEON. OTHERWISE, WE PLAN TO FOLLOW UP WITH AM LABS AND CONTINUE TO MONITOR. TIME SPENT ON CLINICAL ASSESSMENT, REVIEWING LABS AND IMAGING, DECISION MAKING, AND DOCUMENTATION GREATER THAN 75 MINUTES. H&P Reviewed: Yes Patient was examined?: Yes
[2021-07-07] MEDS ORDERED: LR 1,000 ML IV 1,000 ML IV ONE (11:01)
[2021-07-07] MEDS ORDERED: FENTANYL VIAL INJ 100 mcg ONE (11:20)
[2021-07-07] MEDS ORDERED: DIPRIVAN VIAL ONE (11:40)
[2021-07-07] MEDS ORDERED: VERSED ONE (11:40)
[2021-07-07] MEDS ORDERED: KETALAR ONE (11:40)
[2021-07-07] MEDS ORDERED: MARCAINE 0.5% ONE (11:59)
[2021-07-07] MEDS ORDERED: HYDROGEN PEROXIDE 3% ONE (12:04)
[2021-07-07 12:38] VITALS: BMI 30.9
[2021-07-07] MEDS ORDERED: ZOLOFT ONE (19:34)
[2021-07-07] MEDS: ZOCOR TAB 40 MG PO SCH (20:24)
[2021-07-07] MEDS: DESYREL PO SCH (20:24)
[2021-07-07] MEDS: AMBIEN PO SCH (20:24)
[2021-07-07] MEDS: ELAVIL PO SCH (20:24)
[2021-07-08] MEDS: PERCOCET TAB 5/325 MG PO PRN ×3 (00:14→09:16)
[2021-07-08] MEDS: NS 1,000 ML IV 1,000 ML IV SCH (02:09)
[2021-07-08] MEDS: ZOSYN VIAL 3.375 GRAMS 3.375 G in NS 100 ML IV + SPIKE MINIBAG* 100 ML IV SCH (05:11)
[2021-07-08] MEDS: KLONOPIN TAB 1 MG PO PRN (05:12)
[2021-07-08 05:48] LABS: BASOPHILS # (AUTO) 0.1 X10^3/uL (0.0-0.1); BASOPHILS % (AUTO) 1.2 % (0.2-1.0); EOSINOPHILS # (AUTO) 0.1 x10^3/uL (0.0-0.2); EOSINOPHILS % (AUTO) 3.1 % (0.9-2.9); LYMPHOCYTES # (AUTO) 1.6 X10^3/uL (1.3-2.9); LYMPHOCYTES % (AUTO) 32.9 % (21.0-51.0); MEAN CORPUSCULAR HEMOGLOBIN 32.5 pg (27.0-34.0); MEAN CORPUSCULAR HGB CONC 33.5 g/dL (33.0-35.0); MEAN CORPUSCULAR VOLUME 97.1 fL (80.0-100.0); MONOCYTES # (AUTO) 0.3 x10^3/uL (0.3-0.8); MONOCYTES % (AUTO) 7.2 % (0.0-13.0); NEUTROPHILS # (AUTO) 2.7 x10^3/uL (2.2-4.8); NEUTROPHILS % (AUTO) 55.6 % (42.0-75.0); PLATELET COUNT 218 X10^3/uL (150.0-450.0); RED BLOOD COUNT 3.71 X10^6/uL (3.5-5.4); RED CELL DISTRIBUTION WIDTH 13.1 % (11.6-16.5); WHITE BLOOD COUNT 4.8 X10^3/uL (3.6-10.0)
[2021-07-08 05:53] LABS: HEMOGLOBIN 12.1 g/dL (12.0-16.0)
[2021-07-08 06:00] LABS: ALANINE AMINOTRANSFERASE 34 Units/L (12-78); ALBUMIN 3.1 g/dL (3.4-5.0); ALKALINE PHOSPHATASE 134 Units/L (46-116); ASPARTATE AMINO TRANSFERASE 18 Units/L (15-37); BLOOD UREA NITROGEN 13 mg/dL (7-18); CALCIUM 8.3 mg/dL (8.5-10.1); CARBON DIOXIDE 27.6 mmol/L (21-32); CHLORIDE 106 mmol/L (98-107); CREATININE 0.76 mg/dL (0.55-1.02); SODIUM 139 mmol/L (136-145); TOTAL PROTEIN 6.6 g/dL (6.4-8.2); eGFR NON BLACK RACES > 60 (>60)
[2021-07-08] MEDS ORDERED: ZOLOFT ONE (08:11)
[2021-07-08] MEDS: LASIX PO SCH (08:18)
[2021-07-08] MEDS: EFFEXOR TAB 75 MG (BID DOSING) PO SCH (08:18)
[2021-07-08] MEDS: ZOLOFT PO SCH (08:20)
--- NOTE | 2021-07-08 08:21 | PCM.PROG ---
Progress Note - Progress Note for Day of Date of Exam: 07/07/21 - Subjective Subjective: IS BEING TREATED FOR RIGHT LOWER EXTREMITY CELLULITIS DUE TO PUNCTURE WOUND. TODAY, SHE IS ALERT AND ORIENTED, LYING IN BED ON MORNING ROUNDS. SHE CONTINUES WITH PAIN AND SWELLING TO THE RIGHT LOWER EXTREMITY. ON EXAMINATION, HEART IS REGULAR IN RATE AND RHYTHM. BILATERAL LUNGS CLEAR TO AUSCULTATION. ABDOMEN IS ROUND, SOFT, AND NON-TENDER WITH NORMAL BOWEL SOUNDS NOTED IN ALL QUADRANTS. RIGHT LOWER EXTREMITY CONTINUES WITH ERYTHEMA AND EDEMA. HER VITALS THIS MORNING ARE: 97.1-60-18-96%-129/60. LABS WERE OBTAINED. SHE IS HEMODYNAMICALLY STABLE. WBC WNL. BLOOD AND WOUND CULTURES ARE PENDING. CONSULTED WITH PATIENT YESTERDAY AND PLANS TO TAKE HER TO THE OR FOR DEBRIDEMENT OF WOUND TODAY. WE ARE IN AGREEMENT WITH PLANS AND PATIENT IS MEDICALLY STABLE AND CLEARED FOR PROCEDURE. SHE IS CURRENTLY RECEIVING NORMAL SALINE AT 80 ML/HR, ZOSYN 3.375G IV TID, VANCOMYCIN 1.25G IF Q12H, PERCOCET PRN, THE POTASSIUM AND MAGNESIUM PROTOCOLS, AND HER HOME MEDICATIONS WERE RESUMED. WE WILL CONTINUE WITH CURRENT PLAN OF CARE TODAY. OTHERWISE, WE PLAN TO FOLLOW UP WITH AM LABS AND CONTINUE TO MONITOR. TIME SPENT ON CLINICAL ASSESSMENT, REVIEWING LABS AND IMAGING, DECISION MAKING, AND DOCUMENTATION GREATER THAN 45 MINUTES. - Past Medical Family Social History Past Med/Fam/Surg Hx: No changes since H&P Allergies: Allergies No Known Drug Allergies Allergy (Verified 10/06/17 11:35) - Review of Systems ROS: No change since H&P - Vital Signs and I&O's Vital Signs: Temperature 97.6 F Pulse Rate [Left Brachial] 61 Respiratory Rate 21 Blood Pressure [Left Arm] 140/69 Blood Pressure [Right Arm] 128/60 Blood Pressure 115/55 O2 Sat by Pulse Oximetry 94 Intake and Output: Intake & Output 07/05/21 07/06/21 07/07/21 07/08/21 11:59 11:59 11:59 11:59 Intake Total 1977 4005 / 4005 Output Total 500 / 500 Balance 1977 3505 / 3505 - Physical Exam Oriented: Normal Eyes: Normal Ear: Normal Nose: Normal Throat: Normal Respiratory: Normal Cardiovascular: Normal : Normal Auscultation: Bowel Sounds: Normal Palpation: Normal Tenderness: Normal Skin: Red, Tender, Hot, Wound (right calf large dark ulcerated skin ) Musculoskeletal: Right, Leg, Swelling, Tender Psychiatric: Normal Mood Description: Calm Affect: Normal Speech Pattern: Clear, Appropriate - Laboratory and Diagnostics Result Diagrams: 07/08/21 05:04 07/08/21 05:04 Labs: 07/06/21 12:11 Leg - Right Wound Culture - Preliminary Laboratory WBC 4.8 X10^3/uL (3.6-10.0) 07/08/21 05:04 RBC 3.71 X10^6/uL (3.5-5.4) 07/08/21 05:04 Hgb 12.1 g/dL (12.0-16.0) D 07/08/21 05:04 Hct 36.0 % (36.0-47.0) 07/08/21 05:04 MCV 97.1 fL (80.0-100.0) 07/08/21 05:04 MCH 32.5 pg (27.0-34.0) 07/08/21 05:04 MCHC 33.5 g/dL (33.0-35.0) 07/08/21 05:04 RDW 13.1 % (11.6-16.5) 07/08/21 05:04 Plt Count 218 X10^3/uL (150.0-450.0) 07/08/21 05:04 Plt Count Comment Adequate (ADEQUATE) 07/06/21 12:19 MPV 10.0 fL (7.4-11.0) 07/08/21 05:04 Neut % (Auto) 55.6 % (42.0-75.0) 07/08/21 05:04 Lymph % (Auto) 32.9 % (21.0-51.0) 07/08/21 05:04 Beadle % (Auto) 7.2 % (0.0-13.0) 07/08/21 05:04 Eos % (Auto) 3.1 % (0.9-2.9) H 07/08/21 05:04 Baso % (Auto) 1.2 % (0.2-1.0) H 07/08/21 05:04 Neut # (Auto) 2.7 x10^3/uL (2.2-4.8) 07/08/21 05:04 Lymph # (Auto) 1.6 X10^3/uL (1.3-2.9) 07/08/21 05:04 Beadle # (Auto) 0.3 x10^3/uL (0.3-0.8) 07/08/21 05:04 Eos # (Auto) 0.1 x10^3/uL (0.0-0.2) 07/08/21 05:04 Baso # (Auto) 0.1 X10^3/uL (0.0-0.1) 07/08/21 05:04 Absolute Nucleated RBC 0.0 /100WBC 07/08/21 05:04 Plt Morphology Comment Normal (NORMAL) 07/06/21 12:19 RBC Morphology Normal (NORMAL) 07/06/21 12:19 Sodium 139 mmol/L (136-145) 07/08/21 05:04 Corrected Sodium TNP 07/08/21 05:04 Potassium 3.6 mmol/L (3.5-5.1) 07/08/21 05:04 Chloride 106 mmol/L (98-107) 07/08/21 05:04 Carbon Dioxide 27.6 mmol/L (21-32) 07/08/21 05:04 BUN 13 mg/dL (7-18) 07/08/21 05:04 Creatinine 0.76 mg/dL (0.55-1.02) 07/08/21 05:04 Est GFR (MDRD) Af Amer > 60 (>60) 07/08/21 05:04 Est GFR (MDRD) Non-Af > 60 (>60) 07/08/21 05:04 Glucose 101 mg/dL (65-99) H 07/08/21 05:04 Lactic Acid 1.3 mmol/L (0.4-2.0) 07/06/21 15:25 Calcium 8.3 mg/dL (8.5-10.1) L 07/08/21 05:04 Corrected Calcium 9.0 mg/dL (8.5-10.1) 07/08/21 05:04 Magnesium 2.2 mg/dL (1.7-2.9) 07/07/21 05:40 Total Bilirubin 0.30 mg/dL (0.2-1.0) 07/08/21 05:04 AST 18 Units/L (15-37) 07/08/21 05:04 ALT 34 Units/L (12-78) 07/08/21 05:04 Alkaline Phosphatase 134 Units/L (46-116) H 07/08/21 05:04 Total Protein 6.6 g/dL (6.4-8.2) 07/08/21 05:04 Albumin 3.1 g/dL (3.4-5.0) L 07/08/21 05:04 Globulin 3.5 g/dL (2.5-4.5) 07/08/21 05:04 Albumin/Globulin Ratio 0.9 Ratio (1.1-2.1) L 07/08/21 05:04 SARS-CoV-2 (PCR) Negative (NEGATIVE) 07/06/21 09:54 Influenza Type A (PCR) Negative (NEGATIVE) 07/06/21 09:54 Influenza Type B (PCR) Negative (NEGATIVE) 07/06/21 09:54 RSV (PCR) Negative (NEGATIVE) 07/06/21 09:54 Tissue Pathology To follow 07/07/21 12:02 - Plan (1) Cellulitis of right lower extremity Status: Acute Plan: surgical consult for debridement, NORMAL SALINE AT 80 ML/HR, ZOSYN 3.375G IV TID, VANCOMYCIN 1.25G IF Q12H, PERCOCET PRN, THE POTASSIUM AND MAGNESIUM PROTOCOLS, AND HER HOME MEDICATIONS WERE RESUMED.
[2021-07-08] MEDS ORDERED: PHARMACY COMMENT IV ONE (08:30)
[2021-07-08] MEDS ORDERED: NORVASC TAB 10 MG PO SCH (09:00)
[2021-07-08 09:20] LABS: CREATININE 0.82 mg/dL (0.55-1.02); VANCOMYCIN,TROUGH 12.7 ug/mL (15-20)
[2021-07-08] MEDS: VANCOMYCIN IV *PREMIX 1.25 G/250 ML BAG 1.25 G/250 ML PIGGYBACK IV SCH (09:53)
[2021-07-08 12:28] VITALS: BP 136/70
[2021-07-08] MEDS ORDERED: HYDROGEN PEROXIDE 3% ONE (13:25)
== END 2021-07-08 14:15 | disposition home or self-care (01) ==
LOC: MED/SURG
PROVIDERS: ADMIT Internal Medicine; ATTEND Internal Medicine
DX: Z86.14 Personal history of Methicillin resistant Staphylococcus aureus infection; Y92.099 Unspecified place in other non-institutional residence as the place of occurrence of the external cause; I10 Essential (primary) hypertension; Z20.822 Contact with and (suspected) exposure to COVID-19; E87.6 Hypokalemia; W26.8XXA Contact with other sharp object(s), not elsewhere classified, initial encounter; R94.31 Abnormal electrocardiogram [ECG] [EKG]; B96.89 Other specified bacterial agents as the cause of diseases classified elsewhere; L03.115 Cellulitis of right lower limb; S81.831A Puncture wound without foreign body, right lower leg, initial encounter; J44.9 Chronic obstructive pulmonary disease, unspecified; F41.8 Other specified anxiety disorders; S80.11XA Contusion of right lower leg, initial encounter